=== PATIENT | male | born 1960 | race Caucasian/White ===

== ENCOUNTER 2022-03-17 09:51 | Inpatient (IN) | payer OTHER, SELFPAY ==
[2022-03-17] VITALS (29 sets, daily range): BP systolic 91–132; BP diastolic 53–73; PULSE 50–98; RESP 10–20; TEMP 36.6–37.9; O2SAT 91–100; BMI 21.7
--- NOTE | 2022-03-17 | DI.RAD.S_ITS ---
PROCEDURE: XR HIP W PEL IF DONE RT 2V INDICATIONS: INTRA OP TECHNIQUE: 2 views of the hip were acquired. COMPARISON: [facility], CR, XR HIP W PEL IF DONE RT 2V, 03/17/2022, 10:27. FINDINGS: Bones: Intraoperative images demonstrate dynamic compression screw with sideplate placed for ORIF of intertrochanteric right femur fracture. There is near anatomic alignment of fracture fragments following internal fixation. Soft tissues: No suspicious soft tissue calcifications or masses. IMPRESSION: Expected postsurgical change for ORIF of left femur fracture. Dictated by: Graciela Estrada MD, PhD on 03/18/2022 at 9:21 Approved by: Graciela Estrada MD, PhD on 03/18/2022 at 9:22
--- NOTE | 2022-03-17 10:07 | DI.RAD.S_ITS ---
PROCEDURE: XR HIP W PEL IF DONE RT 2V INDICATIONS: fall down 1 step, hip pain TECHNIQUE: AP pelvis with lateral view(s) of the right hip(s). COMPARISON: None. FINDINGS: Bones: Acute fracture involving intertrochanteric region of right proximal femur with fracture line extending to both greater and lesser trochanters. Superior migration of proximal femoral shaft in relation to femoral head is seen. Moderate bilateral hip joint osteoarthritic changes are seen. No evidence of avascular necrosis of femoral head. Pelvic ring appears intact. No suspicious bony lesions. Soft tissues: The visualized bowel gas pattern is normal. No suspicious soft tissue calcifications. IMPRESSION: Acute displaced right intertrochanteric fracture as above. Dictated by: Avery Collier M.D. on 03/17/2022 at 11:34 Approved by: Avery Collier M.D. on 03/17/2022 at 11:35
--- NOTE | 2022-03-17 11:50 | ED_ITS ---
HPI - Fall General Chief Complaint: Fall Stated Complaint: R hip pain Time Seen by Provider: 03/17/22 09:55 History of Present Illness HPI Narrative: 61-year-old gentleman with a history of developmental and physical delay without specific diagnosis he was otherwise entirely healthy and on no medications. He has some foot contractures that have been lifelong issues and he has worked with physical therapy multiple times of the course of his life 2 days ago, was walking up 1 step stumbled fell on his right hip and was complaining of pain in the right upper thigh. He lives with his brother and [id number] with his [id number] being his primary caregiver. Because his pain was not dramatic they assumed was simply bruised and have been icing the area for 2 days but today when he was unwilling to bear weight at all they brought him into the emergency department for further evaluation. Related Data Allergies Allergy/AdvReac Type Severity Reaction Status Date / Time cat dander Allergy Verified 03/17/22 13:01 Review of Systems Review of Systems Narrative: Pertinent positive and negative findings as per HPI Remainder of review of systems is otherwise unremarkable for Constitutional: Fevers, chills, weakness ENT: No sore throat, neck pain, ear pain CV: Chest pain, palpitations, Respiratory: Cough, wheeze, dyspnea GI: Nausea, vomiting, diarrhea, : Dysuria, hematuria, Patient History Medical History (Updated 03/17/22 @ 13:13 by Hilda Rose MD) Developmental delay, moderate Exam Initial Vital Signs Initial Vital Signs: Vital Signs Pulse Rate 52 L 03/17/22 09:57 Pulse Oximetry 98 03/17/22 09:57 General: Healthy appearing, in no acute distress. Able to give a complete and coherent history. Well-nourished well-developed HEENT: Moist mucous membranes, normal sclera with reactive pupils, Respiratory: Lungs are clear to auscultation, no wheezing no rales no rhonchi. Full and symmetrical air movement Cardiac: Regular rate and rhythm no murmurs no bruits Abdomen: Soft, nontender, good bowel tones, no flank pain Skin: Warm and dry, no rashes Neurologic: Grossly neurologically intact with no obvious asymmetries or abnormalities Extremities: Right leg is held in flexion and slight internal rotation. Both feet and ankles with chronic musculoskeletal changes consistent with neuromuscular disorder Psych: Cooperative, appropriate insight and affect Course Orders Ordered: ED Orders 03/17/22 10:07 XR hip w pel if done RT 2V Stat 03/17/22 11:53 XR chest 1V Stat EKG-12 Lead Stat 03/17/22 13:00 COVID19 -Nasal RAPID/Pre-Proc Stat 03/17/22 13:08 Complete Blood Count AUTO DIFF Stat Comprehensive Metabolic Panel Stat Hydromorphone HCl (Hydromorphone 0.5 Mg Inj) 0.5 mg IV Q15MIN PRN PRN Reason: Pain, Last Admin: 03/17/22 13:02 Dose: 0.5 mg Documented By: AIDAN Sodium Chloride (Normal Saline 0.9%) 1,000 mls @ 150 mls/hr IV CONT LUKE Last Admin: 03/17/22 13:02 Dose: 150 mls/hr Documented By: AIDAN Vital Signs Vital signs: Vital Signs - 8 hr 03/17/22 10:04 03/17/22 09:57 03/17/22 10:00 Temperature 99.1 F Pulse Rate 51 L 52 L 53 L Respiratory Rate 16 Blood Pressure 104/63 Pulse Oximetry 97 98 91 Oxygen Delivery Method Room Air 03/17/22 10:30 03/17/22 11:02 03/17/22 11:30 Temperature Pulse Rate 57 L 57 L 59 L Respiratory Rate Blood Pressure Pulse Oximetry 98 99 Oxygen Delivery Method 03/17/22 12:00 03/17/22 12:30 03/17/22 12:35 Temperature Pulse Rate 57 L 55 L Respiratory Rate Blood Pressure 109/60 Pulse Oximetry 100 98 Oxygen Delivery Method 03/17/22 12:35 03/17/22 12:44 03/17/22 12:44 Temperature Pulse Rate 58 L 56 L Respiratory Rate Blood Pressure 108/67 Pulse Oximetry 98 99 Oxygen Delivery Method MDM - Fall Lab Data Result diagrams: 03/17/22 13:08 03/17/22 13:08 Labs: Lab Results 03/17/22 03/17/22 Range/Units 13:08 13:08 WBC 8.8 (4.5-11.0) X10^3/uL RBC 3.68 L (4.5-5.9) X10^6/uL Hgb 12.2 L (13.5-17.5) g/dL Hct 36.4 L (41-53) % MCV 98.8 (80-100) fL MCH 33.2 (26-34) PG MCHC 33.7 (30-36) % RDW 13.3 (11.6-14.8) % Plt Count 183 (150-400) X10^3/uL Neut % (Auto) 76.3 H (50-75) % Lymph % (Auto) 9.5 L (25-40) % [place] % (Auto) 13.8 (3-14) % Eos % (Auto) 0.2 L (2-4) % Baso % (Auto) 0.2 (0-2) % Neut # (Auto) 6700 (6647-8353) /uL Lymph # (Auto) 800 L (0970-1882) /uL [place] # (Auto) 1200 H (0-900) /uL Eos # (Auto) 0 (0-450) /uL Baso # (Auto) 0 (0-100) /uL Sodium 137 (137-145) mmol/L Potassium 3.8 (3.4-5.1) mmol/L Chloride 102 (98-107) mmol/L Carbon Dioxide 30 (22-32) mmol/L BUN 19 (9-20) mg/dL Creatinine 0.65 L (0.66-1.25) mg/dL Estimated GFR > 60 (>60) mL/min BUN/Creatinine Ratio 29.2 H (6-22) Glucose 91 (80-110) mg/dL Calcium 8.2 L (8.4-10.2) mg/dL Total Bilirubin 0.8 (0.2-1.3) mg/dL AST 28 (17-59) IU/L ALT 15 (<50) IU/L Alkaline Phosphatase 44 (38-126) U/L Total Protein 6.7 (6.3-8.2) g/dL Albumin 3.6 (3.5-5.0) g/dL Globulin 3.1 (1.7-4.1) g/dL Albumin/Globulin Ratio 1.2 (1.0-2.8) Imaging Data Chest x-ray: Radiologist's Impression: FINDINGS:? ? Surgical changes and devices:? None.? ? Lungs and pleura:? Lungs are clear.? No pleural effusions or pneumothorax.? ? Mediastinum:? Mediastinal contours appear normal.? Heart size is normal.? ? Bones and chest wall:? No suspicious bony lesions.? Age-appropriate bony deg enerative changes are seen. ? Overlying soft tissues appear unremarkable.? ? ? IMPRESSION:? Portable chest study within normal limits for age. ? ? Dictated by: Joaquin Trent M.D. on 03/17/2022 at 11:05? ?? XR hip: Radiologist's Impression: NDICATIONS:? fall down 1 step, hip pain ? TECHNIQUE:? AP pelvis with lateral view(s) of the right hip(s).? ? COMPARISON:? None. ? FINDINGS:? ? Bones:? Acute fracture involving intertrochanteric region of right proximal femur with fracture line extending to both greater and lesser trochanters.? Superior migration of proximal femoral shaft in relation to femoral head is seen.? Moderate bilateral hip joint osteoarthritic changes are seen.? No evidence of avascular necrosis of femoral head.? Pelvic ring appears intact.? No suspicious bony lesions.? ? Soft tissues:? The visualized bowel gas pattern is normal.? No suspicious soft tissue calcifications.? ? ? IMPRESSION:? Acute displaced right intertrochanteric fracture as above. ? ? ? Dictated by: Avery Collier M.D. on 03/17/2022 at 11:34? ?? MDM Narrative Medical decision making narrative: 61-year-old physically healthy gentleman with mild developmental delay and but appears to be mild neuromuscular abnormalities neither of which have been formally diagnosed. Stumbled going up a stair 2 days ago falling onto his right hip and suffering a displaced right intratrochanteric fracture. Care is reviewed with Dr. Stock. Anticipate surgical intervention this evening. He will admit the patient. Discharge Plan Departure Patient Disposition: Admitted As Inpatient Clinical Impression: Closed hip fracture Qualifiers: Encounter type: initial encounter Laterality: right Qualified Code(s): S72.001A - Fracture of unspecified part of neck of right femur, initial encounter for closed fracture Admit Date/Time: 03/17/22 13:33 Admit Provider: Michael Stock
--- NOTE | 2022-03-17 11:53 | DI.RAD.S_ITS ---
PROCEDURE: XR CHEST 1V INDICATIONS: Trauma, preoperative TECHNIQUE: One view of the chest was acquired. COMPARISON: None. FINDINGS: Surgical changes and devices: None. Lungs and pleura: Lungs are clear. No pleural effusions or pneumothorax. Mediastinum: Mediastinal contours appear normal. Heart size is normal. Bones and chest wall: No suspicious bony lesions. Age-appropriate bony degenerative changes are seen. Overlying soft tissues appear unremarkable. IMPRESSION: Portable chest study within normal limits for age. Dictated by: Joaquin Trent M.D. on 03/17/2022 at 11:05 Approved by: Joaquin Trent M.D. on 03/17/2022 at 11:06
[2022-03-17] MEDS: SODIUM CHLORIDE 0.9% 1,000 ML 150 ML IV (13:02)
[2022-03-17] MEDS: HYDROMORPHONE 0.5 MG INJ IV (13:02)
[2022-03-17 13:30] LABS: Add Manual Diff / Slide Review NO; Basophils Absolute Auto 0 /uL (0-100); Basophils Percent Auto 0.2 % (0-2); Eosinophils Absolute Auto 0 /uL (0-450); Eosinophils Percent Auto 0.2 % (2-4); Hematocrit 36.4 % (41-53); Hemoglobin 12.2 g/dL (13.5-17.5); Lymphocytes Absolute Auto 800 /uL (1100-4500); Lymphocytes Percent Auto 9.5 % (25-40); Mean Corpuscular HGB Conc 33.7 % (30-36); Mean Corpuscular Hemoglobin 33.2 PG (26-34); Mean Corpuscular Volume 98.8 fL (80-100); Monocytes Absolute Auto 1200 /uL (0-900); Monocytes Percent Auto 13.8 % (3-14); Neutrophils Absolute Auto 6700 /uL (1500-7000); Neutrophils Percent Auto 76.3 % (50-75); Platelet Count 183 X10^3/uL (150-400); Red Blood Cell Count 3.68 X10^6/uL (4.5-5.9); Red Cell Distribution Width 13.3 % (11.6-14.8); White Blood Cell Count 8.8 X10^3/uL (4.5-11.0)
[2022-03-17 13:43] LABS: Alanine Aminotransferase 15 IU/L (<50); Albumin 3.6 g/dL (3.5-5.0); Albumin Globulin Ratio 1.2 (1.0-2.8); Alkaline Phosphatase 44 U/L (38-126); Aspartate Aminotransferase 28 IU/L (17-59); BUN Creatinine Ratio 29.2 (6-22); Bilirubin Total 0.8 mg/dL (0.2-1.3); Blood Urea Nitrogen 19 mg/dL (9-20); Calcium 8.2 mg/dL (8.4-10.2); Carbon Dioxide 30 mmol/L (22-32); Chloride 102 mmol/L (98-107); Estimated Glomerular Filt Rate > 60 mL/min (>60); Globulin 3.1 g/dL (1.7-4.1); Glucose 91 mg/dL (80-110); HEMOLYSIS 34 (0-50); Potassium 3.8 mmol/L (3.4-5.1); Sodium 137 mmol/L (137-145); Total Protein 6.7 g/dL (6.3-8.2)
[2022-03-17 14:14] LABS: COVID19 -Nasal RAPID Negative (Negative)
--- NOTE | 2022-03-17 17:05 | PM.HP.1 ---
History of Present Illness History of Present Illness Date Patient Seen: 03/17/22 Time Patient Seen: 17:05 Date of Onset of Symptoms: 03/15/22 Chief complaint: R hip pain Narrative: The patient is a 61-year-old gentleman with mild developmental delay who suffered a fall 2 days ago and developed significant right hip pain. This did not resolve so he came to the emergency room for evaluation on the morning of March 17, 2022. An x-ray revealed a displaced intertrochanteric right hip fracture. Orthopedic consultation has been obtained for definitive management of this fracture. Patient History Medical History (Updated 03/17/22 @ 13:13 by Hilda Rose MD) Developmental delay, moderate Family & Social History Safety & Behavioral: Feels Safe in Current Yes Environment Been Physically Hurt or No Threatened By a Person Meds Home Medications and Allergies Allergies Allergy/AdvReac Type Severity Reaction Status Date / Time cat dander Allergy Verified 03/17/22 13:01 Review of Systems Review of Systems Narrative: He reports he does not have normal function with his feet. He has mildly altered sensation and cannot move his toes or ankles. This is chronic. Exam Vital Signs (past 8 hours): - 03/17/22 10:04 03/17/22 09:57 03/17/22 10:00 Temperature 99.1 F Pulse Rate 51 L 52 L 53 L Respiratory Rate 16 Blood Pressure 104/63 Pulse Oximetry 97 98 91 Oxygen Delivery Method Room Air 03/17/22 10:30 03/17/22 11:02 03/17/22 11:30 Temperature Pulse Rate 57 L 57 L 59 L Respiratory Rate Blood Pressure Pulse Oximetry 98 99 Oxygen Delivery Method 03/17/22 12:00 03/17/22 12:30 03/17/22 12:35 Temperature Pulse Rate 57 L 55 L Respiratory Rate Blood Pressure 109/60 Pulse Oximetry 100 98 Oxygen Delivery Method 03/17/22 12:35 03/17/22 12:44 03/17/22 12:44 Temperature Pulse Rate 58 L 56 L Respiratory Rate Blood Pressure 108/67 Pulse Oximetry 98 99 Oxygen Delivery Method 03/17/22 13:00 03/17/22 13:00 03/17/22 13:30 Temperature Pulse Rate 53 L Respiratory Rate Blood Pressure 115/64 99/56 L Pulse Oximetry 100 Oxygen Delivery Method 03/17/22 13:30 03/17/22 14:00 03/17/22 14:00 Temperature Pulse Rate 58 L 55 L Respiratory Rate 20 Blood Pressure 96/58 L Pulse Oximetry 97 98 Oxygen Delivery Method 03/17/22 14:30 03/17/22 14:30 03/17/22 15:00 Temperature Pulse Rate 55 L Respiratory Rate Blood Pressure 103/56 L 100/55 L Pulse Oximetry 98 Oxygen Delivery Method 03/17/22 15:00 03/17/22 15:30 03/17/22 15:30 Temperature Pulse Rate 55 L 53 L Respiratory Rate 12 Blood Pressure 92/55 L 102/55 L Pulse Oximetry 95 95 Oxygen Delivery Method 03/17/22 15:59 03/17/22 16:00 03/17/22 16:00 Temperature Pulse Rate 54 L 52 L Respiratory Rate Blood Pressure 91/53 L Pulse Oximetry 95 95 Oxygen Delivery Method Oxygen Delivery Method Room Air Narrative Exam Narrative: The patient is seen resting comfortably in his emergency room [facility]. The skin over the proposed surgical site is clean with no signs of abrasions or infection. His right leg is shortened and externally rotated. He is light touch is objectively intact in his right leg. He cannot dorsiflex and plantar flex his toes or ankle. He has 2+ posterior tibial pulse. HEENT examination is normocephalic atraumatic. Chest is clear to auscultation. Cardiac exam is regular rate rhythm no rubs murmurs or gallops. Abdomen is soft nontender with normal bowel with bowel sounds no palpable masses. Objective Labs Result Diagrams: 03/17/22 13:08 03/17/22 13:08 Labs: Laboratory Results - last 24 hr 03/17/22 03/17/22 03/17/22 13:00 13:08 13:08 WBC 8.8 RBC 3.68 L Hgb 12.2 L Hct 36.4 L MCV 98.8 MCH 33.2 MCHC 33.7 RDW 13.3 Plt Count 183 Neut % (Auto) 76.3 H Lymph % (Auto) 9.5 L [place] % (Auto) 13.8 Eos % (Auto) 0.2 L Baso % (Auto) 0.2 Neut # (Auto) 6700 Lymph # (Auto) 800 L [place] # (Auto) 1200 H Eos # (Auto) 0 Baso # (Auto) 0 Sodium 137 Potassium 3.8 Chloride 102 Carbon Dioxide 30 BUN 19 Creatinine 0.65 L Estimated GFR > 60 BUN/Creatinine Ratio 29.2 H Glucose 91 Calcium 8.2 L Total Bilirubin 0.8 AST 28 ALT 15 Alkaline Phosphatase 44 Total Protein 6.7 Albumin 3.6 Globulin 3.1 Albumin/Globulin Ratio 1.2 SARS-CoV-2 (PCR) Negative radiographs are obtained March 17, 2022 under reviewed and independently interpreted. These reveal a displaced intertrochanteric hip fracture of the right femur. Assessment & Plan Assessment & Plan narrative: The patient is a mildly developmentally delayed gentleman with abnormal function in his feet. He stumbled 2 days ago sustaining the above-noted fracture. He has agreed to open reduction internal fixation with a dynamic hip screw after discussion the risks benefits and alternatives. Risks discussed included but were not limited to: Failure to improve, failure of the hardware or cutting out, stiffness, infection, nerve damage, deep venous thrombosis, pulmonary embolism, hemorrhage requiring transfusion, stroke, myocardial infarction, permanent paralysis and . COVID-19 COVID-19 status: Negative Result date/Date tested (Pos, Neg/Pending): 03/17/22 Time Spent With Patient Critical Care time: I spent a total of [] minutes of critical care time on this patient's care today; this time is exclusive of procedural time.
[2022-03-17] MEDS: LACTATED RINGERS 1,000 ML 42 ML IV ×2 (17:22→19:39)
[2022-03-17] MEDS: CEFAZOLIN 2 GM/20 ML SYRINGE IV (17:45)
[2022-03-17 18:09] LABS: Bacteria Urine Occasional (0-1); Culture Indicated Urine Cult Not Indicated; Mucus Urine 2+ (Negative); RBC Urine 1-5/HPF (0-5/HPF); Squamous Epithelial Cell Urine 0-1 /HPF (0-5/HPF); Transitional Epi Cells Urine 0-1/HPF (0-5/HPF); WBC Urine 1-5/HPF (0-5/HPF)
--- NOTE | 2022-03-17 18:15 | SUR.OPER ---
Supine on padded [place] table with right leg secured in padded positioning boot and suspended in positioning spars as directed per surgeon, operative leg in traction per surgeon. Left leg in well leg saenz, padded with gel and taped for securing to saenz. Head on one pillow. Arm on non-operative side secured on padded armboard <90 degrees abduction. Arm on operative side padded and resting across chest then secured with tape over sheet. Padded perineal post in place per surgeon. All positioning directed and approved by surgeon.
[2022-03-17] MEDS: TRANEXAMIC ACID 1,000 MG VIAL 2000 MG INJ (18:24)
[2022-03-17] MEDS: BUPIVACAINE 0.5% (PF) 30 ML, EPINEPHrine 0.15 MG INJ (18:24)
--- NOTE | 2022-03-17 19:20 | P.OP_ITS ---
Operative Date/Time/Diagnoses Date of procedure: 03/17/22 Pre-op diagnosis: Right hip intertrochanteric fracture, displaced, closed Post-op diagnosis: same Procedure & Clinicians Procedure: Open reduction internal fixation of right hip fracture with dynamic hip screw construct Same procedure as scheduled: Yes Indications: The patient is a 61-year-old mildly developmentally delayed gentleman who suffered a fall 2 days ago and was unable to walk. He eventually was taken [facility] emergency room by his family for evaluation and radiographs revealed a displaced intertrochanteric hip fracture. He has been admitted for open reduction internal fixation and has agreed to this after discussion the risks benefits and alternatives as documented in my history and physical note. Surgeon: Michael Stock Click Yes if Unassisted: Yes Anesthesia Type: General and Local Operative Notes Findings: Anatomic reduction. Closure Type: primary Specimen(s): none sent Prosthetic devices, grafts, tissues, transplants, or devices: Implants used in this procedure manufactured by the [employer] and included a dynamic hip screw with a 105 mm lag screw and a 135 degree long barrel 4 hole side plate and 4 cortical screws. Applied: implant(s) Estimated Blood Loss (mL): 150 Blood products transfused: none Procedure in detail: The patient was seen in the preoperative area where he identified the right hip as the operative site. This was later confirmed in the operating room using fluoroscopic visualization. He was taken to the operating room on his emergency room [facility] where he underwent a general anesthetic. He was then transferred to the fracture table. The right leg was placed and traction leg saenz the left leg was placed in the well leg saenz in flexed abducted and internally rotated to remove it from the path of fluoroscopy. Traction was placed on the operative leg to reduce the fracture. The fracture reduction was confirmed in the AP and lateral views of fluoroscopy. He received 2 g of Ancef as perioperative antibiotic coverage and a real time operator-out was performed. The lateral aspect of the leg was prepared with ChloraPrep in the usual fashion and draped with an adherent vertical plastic drape. An approximately 8 cm incision was created over the proximal femur in line with the femoral shaft. This was carried down to the fascia ubaldo which was incised. The fascia of the vastus lateralis was incised and the muscle split bluntly to the lateral aspect of the femur. A guide pin was placed in the central aspect of the femoral head on the AP and lateral views. This was measured, 5 mm subtracted and the triple Reamer used to create the path for the lag screw. The lag screw was then placed and advanced to within 5 mm of the dome of the femoral head on both the AP and lateral views. The 135 degree 4 hole long barrel side plate was then advanced over the barrel of the lag screw. It was advanced with a tamp to the lateral aspect of the femur. The cortical screws were then placed to fixate the plate along the femoral shaft. The fracture construct with the hardware was viewed in the AP and lateral planes with fluoroscopy and found to be satisfactorily reduced with no signs of complications. Traction on the leg was then released. Wound was then irrigated with sterile saline. The fascia of the vastus lateralis was closed with a running 2 0 Vicryl, the fascia ubaldo was closed with interrupted and running 0 Vicryl. The subcutaneous layer was closed with 3-0 Vicryl. The subcutaneous tissues were injected with a total of 10 mL 0.5% Marcaine with ep inephrine for postoperative pain control. The skin was then closed with oli. An Aquacel Ag dressing was applied. The patient was taken out of the fracture table set up and transferred to his hospital bed after being extubated on the fracture table. He was transferred to the recovery room in good condition having tolerated the procedure well. Complications: none Post-operative Condition: stable Disposition: PACU Plan for aftercare: The patient will be allowed to weight bear as tolerated. He does have neurologic issues likely cerebral palsy with his lower extremities and may require additional therapy and potentially transfer to long term facility for rehabilitation prior to transfer home.
[2022-03-17] MEDS: MEPERIDINE 50 MG/ML INJ 12.5 MG IV (19:39)
[2022-03-17] MEDS: hydrOXYzine pamoate 25 MG CAPSULE PO (19:41)
[2022-03-17] MEDS: HYDROMORPHONE 2 MG INJ IV (19:42)
--- NOTE | 2022-03-17 19:54 | SUR.PHASEI ---
Pt slow to wake, shakes resolved with demerol, pt c/o pain medicated with dilaudid and vistaril.
[2022-03-17] MEDS: ACETAMINOPHEN 325 MG TABLET 650 MG PO (20:04)
--- NOTE | 2022-03-17 20:36 | SUR.PHASEI ---
Pt delayed, RN not available. Pt given tylenol a long with other meds mentioned pain finally down, pt stated 0/10. Pt transported up to room, left in stable condition with JOCELIN Sanchez. bed low,locked scd's on. Call light in reach, pt aware on it's use.
[2022-03-17] MEDS: LACTATED RINGERS 1,000 ML 125 ML IV (20:43)
[2022-03-18 04:20] VITALS: BP 102/67; PULSE 68; RESP 16; O2SAT 97
[2022-03-18] MEDS: OXYCODONE IR 10 MG TABLET PO ×3 (04:33→18:31)
[2022-03-18] MEDS: hydrOXYzine pamoate 25 MG CAPSULE 50 MG PO (05:46)
[2022-03-18 06:36] LABS: Hematocrit 32.9 % (41-53); Hemoglobin 11.3 g/dL (13.5-17.5); Mean Corpuscular HGB Conc 34.5 % (30-36); Mean Corpuscular Hemoglobin 33.7 PG (26-34); Mean Corpuscular Volume 97.7 fL (80-100); Platelet Count 183 X10^3/uL (150-400); Red Blood Cell Count 3.37 X10^6/uL (4.5-5.9); Red Cell Distribution Width 12.9 % (11.6-14.8); White Blood Cell Count 6.3 X10^3/uL (4.5-11.0)
[2022-03-18 07:23] VITALS: O2SAT 98
[2022-03-18 07:40] VITALS: BP 90/55; PULSE 55; RESP 16; TEMP 36.1; O2SAT 98
--- NOTE | 2022-03-18 07:55 | PM.PNPO.1 ---
Subjective Subjective Date Patient Seen: 03/18/22 Time Patient Seen: 07:56 Interval history: Sitting up in bed, quite cheery. Comfortable, but hesitant with movement because of fear of pain. Eating well, no problems with voiding but complains because 'people keep saying I have Peyronie's.' Has not been OOB yet. Exam Vital Signs (past 8 hours): - 03/18/22 04:20 03/18/22 07:23 Pulse Rate 68 Respiratory Rate 16 Blood Pressure 102/67 Pulse Oximetry 97 98 Oxygen Delivery Method Room Air Oxygen Flow Rate 0 Oxygen Delivery Method Room Air Oxygen Flow Rate 0 Narrative Exam Narrative: 5/5 strength in hip flexors, quadriceps, hamstrings, DF, PF, EHL bilaterally. Sensation to light touch intact throughout BLE. Calves soft, compressible, nontender and without palpable cords or masses. Aquacel dressing CDI. Objective Labs Result Diagrams: 03/18/22 05:36 03/17/22 13:08 Labs: Laboratory Results - last 24 hr 03/17/22 03/17/22 03/17/22 13:00 13:08 13:08 WBC 8.8 RBC 3.68 L Hgb 12.2 L Hct 36.4 L MCV 98.8 MCH 33.2 MCHC 33.7 RDW 13.3 Plt Count 183 Neut % (Auto) 76.3 H Lymph % (Auto) 9.5 L [place] % (Auto) 13.8 Eos % (Auto) 0.2 L Baso % (Auto) 0.2 Neut # (Auto) 6700 Lymph # (Auto) 800 L [place] # (Auto) 1200 H Eos # (Auto) 0 Baso # (Auto) 0 Sodium 137 Potassium 3.8 Chloride 102 Carbon Dioxide 30 BUN 19 Creatinine 0.65 L Estimated GFR > 60 BUN/Creatinine Ratio 29.2 H Glucose 91 Calcium 8.2 L Total Bilirubin 0.8 AST 28 ALT 15 Alkaline Phosphatase 44 Total Protein 6.7 Albumin 3.6 Globulin 3.1 Albumin/Globulin Ratio 1.2 Urine RBC Urine WBC Ur Squamous Epith Cells Ur Transition Epith Cell Urine Bacteria Urine Mucus Ur Culture Indicated? SARS-CoV-2 (PCR) Negative 03/17/22 03/18/22 16:54 05:36 WBC 6.3 RBC 3.37 L Hgb 11.3 L Hct 32.9 L MCV 97.7 MCH 33.7 MCHC 34.5 RDW 12.9 Plt Count 183 Neut % (Auto) Lymph % (Auto) [place] % (Auto) Eos % (Auto) Baso % (Auto) Neut # (Auto) Lymph # (Auto) [place] # (Auto) Eos # (Auto) Baso # (Auto) Sodium Potassium Chloride Carbon Dioxide BUN Creatinine Estimated GFR BUN/Creatinine Ratio Glucose Calcium Total Bilirubin AST ALT Alkaline Phosphatase Total Protein Albumin Globulin Albumin/Globulin Ratio Urine RBC 1-5/hpf Urine WBC 1-5/hpf Ur Squamous Epith Cells 0-1 /hpf Ur Transition Epith Cell 0-1/hpf Urine Bacteria Occasional (0-1) Urine Mucus 2+ H Ur Culture Indicated? Cult not indicated SARS-CoV-2 (PCR) [facility] Medical History (Updated 03/18/22 @ 07:59 by Karis Doherty PA-C) Developmental delay, moderate Social History household members: family Smoking Status: Never smoker alcohol intake: current Assessment & Plan Post-op Assessment and plan (1) Status post hip surgery: Assessment and Plan narrative: PT today. Continue enoxaparin x 10 days for VTE prophylaxis. May require SNF for rehab d/t developmental delay. (2) Acute postoperative anemia due to expected blood loss: Assessment and Plan narrative: Asymptomatic, no intervention needed at this time. Postoperative Procedures: Procedures Operation Date: 03/17/22 16:45 Actual Procedure Side Surgeon p ORIF Hip DHS Right Michael Stock MD Postoperative day: 1 Quality VTE Deep Vein Thrombosis/Pulmonary Embolism Present on Admission: No
--- NOTE | 2022-03-18 07:57 | PC.NURSE ---
Admit/NOC Shift Note- Patient arrived to room via bed from PACU at 2030. Patient developmentally delayed, patient able to make needs known to staff. Admit questions done, no home medications, physical assessment done, and skin check completed. Oriented patient to bed and bed controls, room, lights, phone, menu, and callbell./tv remote. Safety measures in place. bed alarm activated. Call espinoza and phone within reach. will continue to monitor.
[2022-03-18] MEDS: ENOXAPARIN 40 MG/0.4 ML SYRINGE SUBCUT (08:45)
[2022-03-18] MEDS: polyethylene glycoL 3350 17 GM POWD.PACK PO (08:45)
--- NOTE | 2022-03-18 09:30 | PT.IIE ---
Current Diagnoses Acute posthemorrhagic anemia (03/17/22) Other specified postprocedural states (03/17/22) Surgery Performed Operation Date: 03/17/22 16:45 Actual Procedures p ORIF Hip DHS(Right) - Michael Stock MD Medical History (Last Updated 03/18/22 @ 07:59 by Karis Doherty PA-C) Developmental delay, moderate Physical Therapy Inpatient Evaluation/Re-Eval M1 PT/OT-IP Prior Functional Status Start: 03/18/22 12:21 Freq: NEEDED Status: Active Protocol: Document 03/18/22 09:30 AB (Rec: 03/18/22 12:39 AB [email or web address]) Medical Review Prior Functional Status Medical History Reviewed Yes Communication able to make needs known Mobility and Gait pt stated that he is modified independent with all mobilities and ambulation without AD Social History Household Members family Living Arrangements House Number of Floors (Floors) Two Floors Number of Stairs To Enter/Railing? 2 steps to enter without rails ; pt stays on the main level of the house Home Environment High Toilet,Tub/Shower Home Equipment Grab Bars Near Toilet Additional Social History Comment stated that he lives with his brother and sister and his brother works and cannot assist him and he is not sure if his sister can assist him M2 PT-IP Current Condition Start: 03/18/22 12:21 Freq: NEEDED Status: Active Protocol: Document 03/18/22 09:30 AB (Rec: 03/18/22 12:39 AB [email or web address]) Physical Therapy Current Condition Current Condition Evaluation Date 03/18/22 Treatment Diagnosis s/p fall; R hip fx s/p ORIF; difficulty in walkiing Onset Date 03/17/22 M3 PT-IP Subjective Start: 03/18/22 12:21 Freq: NEEDED Status: Active Protocol: Document 03/18/22 09:30 AB (Rec: 03/18/22 12:39 AB [email or web address]) Subjective Physical Therapy Visit Type Type Initial Evaluation Visit Start Time 09:30 Visit Stop Time 10:11 Total Visit Minutes 41 Number of DIRECTOR MACHINE Visits 0 Physical Therapy Visit Comments Patient Comments agreeable to do PT Therapy Pain Assessment Pain When Pain Assessed At Rest Pain Present Pain Present Pain Reported Location r hip Intensity 10 Scale Used Numeric (0 - 10) Pain Management Techniques Apply Cold,Distraction, Modification of Treatment,Re- positioning,Timing of Activity with Medications M4 PT-IP Mobility and Gait Start: 03/18/22 12:21 Freq: NEEDED Status: Active Protocol: Document 03/18/22 09:30 AB (Rec: 03/18/22 12:39 AB [id number]) PT-Bed Mobility Assessment Supine to Sit Supine to Sit Maximum Assistance,1 Person Assistance,2 Person Assistance ,Bedrails PT-Transfer Assessment Sit to and From Stand Sit to and from Stand Maximum Assistance,2 Person Assistance,Use of Upper Extremities Equipment Transfer Assistive Device Gait Belt,Front Wheeled Walker Orthotic/Prosthetic Devices or Brace: No Transfers Transfer Destination Chair Transfer Technique Stand Step Pivot Transfer Ability Level of Assist Maximum Assistance,2 Person Assistance,Use of Upper Extremities Comments Mobility Comments PROM on RLE conducted in supine. pt with increase knee flexor thightness and unable to fully straighten R knee and with increase guarding. completed supine to sit max A x 1 -2 and max cues.. able to sit on EOB mod to max A and max cues. pt is [place] and has difficulty following directions and requires repetitions. pt requested to use the urinal, attempted in sitting but unable. completed sit to stand max A x2 and max cues. pt with difficulty weight bearing on RLE with increase knee flexion. max A for standing balance using FWW and NAC assist pt with urinal . tolerated ~ 7 min of standing using FWW for support max A and max cues. completed step transfer to chair using FWW max A x 2 and max cues. positioned pt on the chair. call light and table placed within reach. Gait Assessment Gait Gait Assistance Required: Maximum Assistance,2 Person Assist Distance (Feet) 2 Able to Maintain Weight Bearing Status Yes During Gait Assistive Devices Assistive Device Gait Belt,Front Wheeled Walker Orthotic/Prosthetic Devices or Brace: No Comments Gait Comments steps during transfers only using FWW PT-Balance Assessment Sitting Balance and Reactions Static Sitting Balance Ability Fair Dynamic Sitting Balance Ability Poor Standing Balance and Reactions Static Standing Balance Ability Poor Dynamic Standing Balance Ability Poor Device Used FWW M5 PT-IP Objective Assessments Start: 03/18/22 12:21 Freq: NEEDED Status: Active Protocol: Document 03/18/22 09:30 AB (Rec: 03/18/22 12:39 AB [email or web address]) Orientation Orientation/Cognition Level of Alertness Alert Orientation Name,Place,Situation Language Function Ability Hard of Hearing Safety Awareness Decreased Safety Awareness Memory Description Short Term Impaired Gross Range of Motion Lower Extremity ROM Assessment Right Impaired Impairments R knee increase guarding. unable to fully straighten. ~ 30 deg less to full ext Strength Lower Extremity Strength Assessment Right Impaired Hip 3-/5 Knee 3-/5 Sensation Assessment Sensation Gross Sensation WNL Muscle Tone Muscle Tone WNL Yes M6 PT-IP Treatment Start: 03/18/22 12:21 Freq: NEEDED Status: Active Protocol: Document 03/18/22 09:30 AB (Rec: 03/18/22 12:39 AB [id number]) Physical Therapy Treatment Education Education Provided Precautions,Weight Bearing Status,Post-Op Packet,Safety M7 PT-IP Assessment and Plan Start: 03/18/22 12:21 Freq: NEEDED Status: Active Protocol: Document 03/18/22 09:30 AB (Rec: 03/18/22 12:39 AB [email or web address]) PT Summary Assessment and Plan Potential Rehabilitation Potential Fair Status of Condition at Evaluation Evolving Summary Impairments Pain,ROM,Strength,Balance, Coordination,Sensation,Tone, Cognition,Bed Mobility, Transfers,Gait,Activity Tolerance Assessment Summary pt requiring max A x 2 and max cues with mobility and unable to ambulate at this time. per EMR, pt has h/o CP. pt with difficulty following directions and needs repetions . pt will require SNF rehab at this time. will continue to assess progress. Goals Bed Mobility Goal Standby Assistance Transfer Goal Standby Assistance,Front Wheeled Walker Gait Goal Standby Assistance,Front Wheel Walker Gait Distance 50 Other Goals up/down 2 steps without rails mod A Days to Meet Goals 10 Frequency of Treatment Frequency Of Treatment Twice a Day Treatment Plan Physical Therapy Treatment Plan Bed Mobility Training,Transfer Training,Gait Training, Therapeutic Exercise,Balance Retraining,Post Op Education, Discharge Planning,Hot or Cold Pack,Neuromuscular Re-ed, Coordination Retraining,Manual Therapy Weight Bearing Status Weight Bearing Status Weight Bear as Tolerated Allowed Weight Bearing Amount (enter % RLE WBAT or #) (%) Recommendations To Nursing Amount of Assist Needed 2 Person Assist Discharge Recommendations PT Discharge Recommendations SNF Rehab Transportation Needs at Discharge Wheelchair/Cabulance
--- NOTE | 2022-03-18 13:02 | CM.DANOTE ---
Addendum entered by Jenise Alamo R.N. 03/18/22 15:36: Spoke with pt sister in law, Kristin, to inquire about Covid vaccination status as [facility] wanted to know more information. Kristin states that she and her family would really like for her to go to the inpatient acute rehab in [place] at [facility], (now the Inpatient Acute Rehab at [place]). DCP spoke with her about the chances of pt getting admitted into the facility. [facility]. DCP spoke with Aury at Rehab and she is going to look at pt referral and get back to DCP about potential acceptance. FABY, RN/JOIP Addendum entered by Jenise Alamo R.N. 03/18/22 14:24: Referral sent to [facility]. Jenise Alamo RN/KELVIN Original Note: DCP Note: Payor: [employer] PCP: Unknown Pt is a 61 y.o. developmentally disabled male, who came to the ER after suffering a fall a few days ago and had developed R hip pain. X ray was done and it was noted that he had a right hip fracture. Ortho was consulted. Surgery was planned and pt agreed. DCP met with pt at the bedside. Pt was sitting up it the chair eating lunch and watching TV. DCP explained role to patient and pt was thankful for the drop in. DCP stated that she has sent a referral to [facility] to see if they would accept him for some more rehab. Pt agreed with plan. White board was updated. DCP stated that she would drop in again the morning to check on him and give status update. DCP attempted to contact Kristin, pt sister in law and emergency contact, and left message to call back so that DCP could update her on the plan. P: Once medically stable per MD, pt to discharge to SNF (pending placement) via cabulance. Jenise Alamo RN/KELVIN Discharge Planning/Care Management CM Discharge Assessment Start: 03/18/22 12:53 Freq: Status: Active Protocol: Document 03/18/22 13:00 HUI (Rec: 03/18/22 13:01 HUI [id number]) Discharge Planning Assessment Assigned Bariatric Nurse Jenise Alamo RN/DCP Advance Directives? No History Provided By Patient,Medical Record Has Patient been admitted in last 30 No days? Prior Living Arrangements House Household Members family Comment With Brother and Sister in Law Type of transporation used prior to Relies on Others admit Independent with ADL's Yes Is patient alert and oriented? Yes: x2 Caregiver for Another No Barriers to Discharge No Discharge Plan Nursing Home Facility Referrals Initiated Nursing Home Whiteboard Updated in Patient Room with Yes name and ext. # of Bariatric Nurse Review Status In Process Please Provide Date Initial DC 03/18/22 Assessment Was Performed Next Review Type Continued Stay Review
--- NOTE | 2022-03-18 13:21 | CM.DPNOTE ---
Emailed referral to [facility] per Jenise. Jojo Dawson CM Assist.
[2022-03-18 13:54] VITALS: BP 99/58; PULSE 55; RESP 16; TEMP 36.2; O2SAT 100
--- NOTE | 2022-03-18 14:32 | PT.IPTN ---
Current Diagnoses Acute posthemorrhagic anemia (03/17/22) Other specified postprocedural states (03/17/22) Surgery Performed Operation Date: 03/17/22 16:45 Actual Procedures p ORIF Hip DHS(Right) - Michael Stock MD Physical Therapy Treatment Note M2 PT-IP Current Condition Start: 03/18/22 12:21 Freq: NEEDED Status: Active Protocol: Document 03/18/22 09:30 AB (Rec: 03/18/22 12:39 AB [id number]) Physical Therapy Current Condition Current Condition Evaluation Date 03/18/22 Treatment Diagnosis s/p fall; R hip fx s/p ORIF; difficulty in walkiing Onset Date 03/17/22 M3 PT-IP Subjective Start: 03/18/22 12:21 Freq: NEEDED Status: Active Protocol: Document 03/18/22 14:11 KS (Rec: 03/18/22 14:58 KS [id number]) Subjective Physical Therapy Visit Type Type Treatment Note Visit Start Time 14:11 Visit Stop Time 14:32 Total Visit Minutes 21 Number of PARIMUTUEL TICKET CHECKER Visits 1 Physical Therapy Visit Comments Patient Comments agreeable to do PT, but hesitant due to pain. Therapy Pain Assessment Pain When Pain Assessed At Rest Pain Present Pain Present Pain Reported M4 PT-IP Mobility and Gait Start: 03/18/22 12:21 Freq: NEEDED Status: Active Protocol: Document 03/18/22 14:11 KS (Rec: 03/18/22 14:58 KS [id number]) PT-Bed Mobility Assessment Scooting Scooting to Edge of Bed Standby Assistance PT-Transfer Assessment Sit to and From Stand Sit to and from Stand Maximum Assistance,1 Person Assistance,Use of Upper Extremities Equipment Transfer Assistive Device Gait Belt,Front Wheeled Walker Orthotic/Prosthetic Devices or Brace: No Transfers Transfer Destination Chair Transfer Technique sit<>stand Transfer Ability Level of Assist Maximum Assistance,2 Person Assistance,Use of Upper Extremities Comments Mobility Comments Pt in chair upon arrival and hesitant to participate due to pain and fear of falling. Pts BP: 101/62. Able to scoot himself to edge of chair SBA. Pt sit<>stand w/ FWW w/ good strength in BUE to push up from arm rests, but ultimately still required Max A to transition arms from arm rests to FWW and stand fully. Pt relied heavily on BUE during standing and avoided putting weight on RLE due to pain. Pt unable to extend knee and put heel on floor on RLE and pt states prior to fall, he walked on his toes on R side and did not put heel on floor. Able to put some weight through toes of R leg but still w/ heavy guarding and heavy reliance of BUE to off weight. BP 102/56 after sitting. Pt performed additional sit<>stand and attempted marching in place w/ similar results. Able to use BUE for slow descent into chair and scooting back in chair. Pt reports slight dizziness, BP 102/67. Pt left in chair w/ all needs in reach. Gait Assessment Comments Gait Comments Did not assess- attempted marching in place. Pt w/ increased difficulty, guarding , and unable to fully weight bear on RLE. PT-Balance Assessment Sitting Balance and Reactions Static Sitting Balance Ability Fair Dynamic Sitting Balance Ability Poor Standing Balance and Reactions Static Standing Balance Ability Poor Dynamic Standing Balance Ability Poor Device Used FWW M5 PT-IP Objective Assessments Start: 03/18/22 12:21 Freq: NEEDED Status: Active Protocol: Document 03/18/22 09:30 AB (Rec: 03/18/22 12:39 AB [id number]) Orientation Orientation/Cognition Level of Alertness Alert Orientation Name,Place,Situation Language Function Ability Hard of Hearing Safety Awareness Decreased Safety Awareness Memory Description Short Term Impaired Gross Range of Motion Lower Extremity ROM Assessment Right Impaired Impairments R knee increase guarding. unable to fully straighten. ~ 30 deg less to full ext Strength Lower Extremity Strength Assessment Right Impaired Hip 3-/5 Knee 3-/5 Sensation Assessment Sensation Gross Sensation WNL Muscle Tone Muscle Tone WNL Yes M6 PT-IP Treatment Start: 03/18/22 12:21 Freq: NEEDED Status: Active Protocol: Document 03/18/22 14:11 KS (Rec: 03/18/22 14:58 KS [id number]) Physical Therapy Treatment Education Education Provided Precautions,Weight Bearing Status,Post-Op Packet,Safety M7 PT-IP Assessment and Plan Start: 03/18/22 12:21 Freq: NEEDED Status: Active Protocol: Document 03/18/22 14:11 KS (Rec: 03/18/22 14:58 KS [id number]) PT Summary Assessment and Plan Potential Rehabilitation Potential Fair Status of Condition at Evaluation Evolving Summary Impairments Pain,ROM,Strength,Balance, Coordination,Sensation,Tone, Cognition,Bed Mobility, Transfers,Gait,Activity Tolerance Assessment Summary Pt MAx A for sit<>Stand and able to perform twice. Attempted marching in place however pt unable to touch heel to floor on R foot, which he states was the same prior to fall but he is also guarding and keeping knee flexed and relying on BUE to off weight RLE. Able to put some weight through R toes w/ cues but grimaced w/ pain and requested to sit. Pt has some difficulty following directions, needing increased cues, but very pleasant. At this time, pt will require SNF to improve functional mobility. Goals Bed Mobility Goal Standby Assistance Transfer Goal Standby Assistance,Front Wheeled Walker Gait Goal Standby Assistance,Front Wheel Walker Gait Distance 50 Other Goals up/down 2 steps without rails mod A Days to Meet Goals 10 Frequency of Treatment Frequency Of Treatment Twice a Day Treatment Plan Physical Therapy Treatment Plan Bed Mobility Training,Transfer Training,Gait Training, Therapeutic Exercise,Balance Retraining,Post Op Education, Discharge Planning,Hot or Cold Pack,Neuromuscular Re-ed, Coordination Retraining,Manual Therapy Weight Bearing Status Weight Bearing Status Weight Bear as Tolerated Allowed Weight Bearing Amount (enter % RLE WBAT or #) (%) Recommendations To Nursing Amount of Assist Needed 2 Person Assist Discharge Recommendations PT Discharge Recommendations SNF Rehab Transportation Needs at Discharge Wheelchair/Cabulance
[2022-03-18] MEDS: LACTATED RINGERS 1,000 ML 125 ML IV (15:26)
[2022-03-18] MEDS: hydrOXYzine pamoate 25 MG CAPSULE PO (18:00)
[2022-03-18 19:45] VITALS: BP 128/57; PULSE 64; RESP 16; TEMP 37.1; O2SAT 96
[2022-03-19] MEDS: hydrOXYzine pamoate 25 MG CAPSULE PO ×2 (05:01→16:31)
[2022-03-19 05:45] VITALS: BP 133/62; PULSE 69; RESP 16; TEMP 36.9; O2SAT 95
[2022-03-19] MEDS: OXYCODONE IR 10 MG TABLET PO ×2 (05:48→12:26)
[2022-03-19 07:30] VITALS: BP 117/62; PULSE 71; RESP 22; TEMP 37; O2SAT 94
[2022-03-19] MEDS: ENOXAPARIN 40 MG/0.4 ML SYRINGE SUBCUT (08:21)
[2022-03-19] MEDS: polyethylene glycoL 3350 17 GM POWD.PACK PO (08:21)
[2022-03-19 11:30] VITALS: BP 113/70; PULSE 65; RESP 17; TEMP 37.1; O2SAT 98
--- NOTE | 2022-03-19 11:44 | CM.DPC ---
Addendum entered by Jenise Alamo R.N. 03/19/22 13:47: Spoke with Kristin this afternoon and she states that she wants to advocate for [facility] if they are unable to get pt into Inpatient Acute Rehab. Kristin states that she spoke with Andrew at [facility] and she is requesting clinicals. I verbalized that [facility] does not accept [employer]. She states that Andrew said they did. Kristin states that this facility would be better than [facility] DCP spoke with Andrew @ [facility]. Andrew states that they are sometimes contracted with [employer] and sometimes not. Andrew wants DCP to send referral. I verbalized we would. P: DCP to await placement decision from [facility]. Jenise Alamo RN/KELVIN Original Note: DCP Cont: DCP spoke with Aury at Acute Inpatient Rehab at [facility] in [place] this morning. Per Aury, they are hesitant to take this patient due to his pain level. Aury states that in order to even qualify for an inpatient acute rehab, pt has to have occupational therapy. Pt currently does not have any orders for OT. Aury requests for controlled pain, OT orders, and the family being agreeable to taking patient home following inpatient stay. DCP spoke with JOCELIN O[place]o this morning and she states that provider has not yet been by yet. DCP requested OT orders and RN will request when provider comes by. Ivelisse to use the FLACC scale for pain management. DCP spoke with Kristin, pt sister in law, to discuss pt current status. Kristin is very adamant about pt going to inpatient rehab. I verbalized the limitations and strict guidelines that pt must have in order to qualify. I did speak to her about [facility] being willing to accept pt under the agreement that the family will be taking them home to their house following surgery. Kristin is concerned pt will not progress to the level that he needs to be. Kristin states that she needs to talk to her about this and she will call DCP back this afternoon. DCP to continue to follow case. P: OT order to be placed if appropriate per MD. FLACC scale to be used for pt pain management. Pt to discharge when medically stable to SNF or Inpatient Rehab. Jenise Alamo RN/KELVIN
--- NOTE | 2022-03-19 12:27 | PT.IPTN ---
Current Diagnoses Acute posthemorrhagic anemia (03/17/22) Other specified postprocedural states (03/17/22) Surgery Performed Operation Date: 03/17/22 16:45 Actual Procedures p ORIF Hip DHS(Right) - Michael Stock MD Physical Therapy Treatment Note M2 PT-IP Current Condition Start: 03/18/22 12:21 Freq: NEEDED Status: Active Protocol: Document 03/18/22 09:30 AB (Rec: 03/18/22 12:39 AB [id number]) Physical Therapy Current Condition Current Condition Evaluation Date 03/18/22 Treatment Diagnosis s/p fall; R hip fx s/p ORIF; difficulty in walkiing Onset Date 03/17/22 M3 PT-IP Subjective Start: 03/18/22 12:21 Freq: NEEDED Status: Active Protocol: Document 03/19/22 12:27 NBM (Rec: 03/19/22 12:59 [facility] [id number]) Subjective Physical Therapy Visit Type Type Treatment Note Visit Start Time 11:55 Visit Stop Time 12:27 Total Visit Minutes 32 Number of PLANT ENGINEERING MANAGER Visits 2 Physical Therapy Visit Comments Patient Comments agreeable to do PT, but hesitant due to pain. Therapy Pain Assessment Pain When Pain Assessed At Rest Pain Present Pain Present Pain Reported Location r hip Intensity 10 Scale Used Romano-Vargas (Faces) Pain Management Techniques Apply Cold,Distraction, Modification of Treatment,Re- positioning,Timing of Activity with Medications M4 PT-IP Mobility and Gait Start: 03/18/22 12:21 Freq: NEEDED Status: Active Protocol: Document 03/19/22 12:27 NBM (Rec: 03/19/22 12:59 [facility] [id number]) PT-Bed Mobility Assessment Supine to Sit Supine to Sit Maximum Assistance,1 Person Assistance,2 Person Assistance ,Bedrails Scooting Scooting to Edge of Bed Minimal Assistance Scooting Up and Down in Bed Minimal Assistance PT-Transfer Assessment Sit to and From Stand Sit to and from Stand Maximum Assistance,2 Person Assistance,Use of Upper Extremities Equipment Transfer Assistive Device Gait Belt,Front Wheeled Walker Orthotic/Prosthetic Devices or Brace: No Transfers Transfer Destination Bed Transfer Technique Sit<>Stand Transfer Ability Level of Assist Maximum Assistance,2 Person Assistance,Use of Upper Extremities Comments Mobility Comments Pt upright in bed upon arrival and agreeable to PT. Able to scoot himself to edge of chair w/ verbal/tactile cues for hand placement. Pt sit<>stand w/ FWW w/ good strength of BUE to push up from arm rests, but still required 2 PA Max A to transition arms from bed to FWW and stand fully. Pt relied heavily on BUE during standing and avoided putting weight on RLE due to pain and fear of falling. Pt able to extend knee to toe-touch w/ neuromuscular facilitation to R quad - heavy guarding and heavy reliance of BUE to off weight. Pt used BUE for controlled descent onto EOB. Seated alternate marching x 5, then seated PROM for R knee ext x 3 min w/ 3 reps x 5SH at end-range. No dizziness reported throughout treatment. Pt requested to use urinal and scooted EOB SBA, then scooted onto bed upright min A and cues to push through LLE for scooting up, min A to straighten RLE. RN present for beginning and end of treatment session. Pt left in bed w/ SCDs, call light and all needs in reach. Gait Assessment Assistive Devices Assistive Device Gait Belt,Front Wheeled Walker Orthotic/Prosthetic Devices or Brace: No Comments Gait Comments Did not assess- Pt w/ guarding and unable to fully weight bear on RLE. PT-Balance Assessment Sitting Balance and Reactions Static Sitting Balance Ability Fair Dynamic Sitting Balance Ability Poor Standing Balance and Reactions Static Standing Balance Ability Poor Dynamic Standing Balance Ability Poor Device Used FWW M5 PT-IP Objective Assessments Start: 03/18/22 12:21 Freq: NEEDED Status: Active Protocol: Document 03/18/22 09:30 AB (Rec: 03/18/22 12:39 AB [id number]) Orientation Orientation/Cognition Level of Alertness Alert Orientation Name,Place,Situation Language Function Ability Hard of Hearing Safety Awareness Decreased Safety Awareness Memory Description Short Term Impaired Gross Range of Motion Lower Extremity ROM Assessment Right Impaired Impairments R knee increase guarding. unable to fully straighten. ~ 30 deg less to full ext Strength Lower Extremity Strength Assessment Right Impaired Hip 3-/5 Knee 3-/5 Sensation Assessment Sensation Gross Sensation WNL Muscle Tone Muscle Tone WNL Yes M6 PT-IP Treatment Start: 03/18/22 12:21 Freq: NEEDED Status: Active Protocol: Document 03/19/22 12:27 NBM (Rec: 03/19/22 12:59 [facility] [id number]) Physical Therapy Treatment Education Education Provided Precautions,Weight Bearing Status,Post-Op Packet,Safety M7 PT-IP Assessment and Plan Start: 03/18/22 12:21 Freq: NEEDED Status: Active Protocol: Document 03/19/22 12:27 [facility] (Rec: 03/19/22 12:59 [facility] [id number]) PT Summary Assessment and Plan Potential Rehabilitation Potential Fair Status of Condition at Evaluation Evolving Summary Impairments Pain,ROM,Strength,Balance, Coordination,Sensation,Tone, Cognition,Bed Mobility, Transfers,Gait,Activity Tolerance Assessment Summary Pt MAx A for sit<>Stand and unable to weightbear fully through RLE. Pt demonstrates significant guarding of LLE keeping knee flexed and relying on BUE to off weight RLE. Was able to straighten R knee w/ neuromuscular facilitation to R quad from non-weightbearing to toe-touch but pt grimaced w/ pain and requested to sit. R knee extension improved w/ PROM in sitting but pt was challenged with holding R knee extension in end-range for 5 sec. Pt has some difficulty following directions, needing increased cues, but very pleasant. At this time, pt will require SNF to improve functional mobility. Goals Bed Mobility Goal Standby Assistance Transfer Goal Standby Assistance,Front Wheeled Walker Gait Goal Standby Assistance,Front Wheel Walker Gait Distance 50 Other Goals up/down 2 steps without rails mod A Days to Meet Goals 10 Frequency of Treatment Frequency Of Treatment Twice a Day Treatment Plan Physical Therapy Treatment Plan Bed Mobility Training,Transfer Training,Gait Training, Therapeutic Exercise,Balance Retraining,Post Op Education, Discharge Planning,Hot or Cold Pack,Neuromuscular Re-ed, Coordination Retraining,Manual Therapy Weight Bearing Status Weight Bearing Status Weight Bear as Tolerated Allowed Weight Bearing Amount (enter % RLE WBAT or #) (%) Recommendations To Nursing Amount of Assist Needed 2 Person Assist Discharge Recommendations PT Discharge Recommendations SNF Rehab Transportation Needs at Discharge Wheelchair/Cabulance
--- NOTE | 2022-03-19 12:44 | PM.PNPO.1 ---
Subjective Subjective Date Patient Seen: 03/19/22 Time Patient Seen: 12:44 Interval history: Patient's pain is mild. Denies fever or chills. No nausea or vomiting. Exam Vital Signs (past 8 hours): - 03/19/22 05:45 03/19/22 07:30 Temperature 98.5 F 98.6 F Pulse Rate 69 71 Respiratory Rate 16 22 Blood Pressure 133/62 117/62 Pulse Oximetry 95 94 Oxygen Flow Rate 0 0 Oxygen Delivery Method Room Air Oxygen Flow Rate 0 Narrative Exam Narrative: 61-year-old male resting comfortably in bed having lunch. No apparent distress. Dressing Clean, dry, intact.. Sensation intact bilateral lower extremities. Motor functions intact bilateral lower extremities. Const General: cooperative and comfortable Objective Labs Result Diagrams: 03/18/22 05:36 03/17/22 13:08 [facility] Medical History Developmental delay, moderate Social History household members: family Smoking Status: Never smoker alcohol intake: current Assessment & Plan Post-op Postoperative Procedures: Procedures Operation Date: 03/17/22 16:45 Actual Procedure Side Surgeon p ORIF Hip DHS Right Michael Stock MD Postoperative day: 2 Postoperative status: doing well Postoperative plan: routine post-op care Postoperative plan narrative: Mobilize with physical therapy, weight-bearing as tolerated Multimodal pain management Currently 2 person assist and may need half-way facility placement. Currently having difficulty the with weight-bearing, guarding, strength and balance per physical therapy. Quality VTE Deep Vein Thrombosis/Pulmonary Embolism Present on Admission: No
--- NOTE | 2022-03-19 13:48 | CM.DPNOTE ---
Faxed referral to [facility]. Jojo Dawson CM Assist
--- NOTE | 2022-03-19 14:20 | PT.IPTN ---
Current Diagnoses Acute posthemorrhagic anemia (03/17/22) Other specified postprocedural states (03/17/22) Surgery Performed Operation Date: 03/17/22 16:45 Actual Procedures p ORIF Hip DHS(Right) - Michael Stock MD Physical Therapy Treatment Note M2 PT-IP Current Condition Start: 03/18/22 12:21 Freq: NEEDED Status: Active Protocol: Document 03/18/22 09:30 AB (Rec: 03/18/22 12:39 AB [id number]) Physical Therapy Current Condition Current Condition Evaluation Date 03/18/22 Treatment Diagnosis s/p fall; R hip fx s/p ORIF; difficulty in walkiing Onset Date 03/17/22 M3 PT-IP Subjective Start: 03/18/22 12:21 Freq: NEEDED Status: Active Protocol: Document 03/19/22 15:44 NBM (Rec: 03/19/22 17:22 NBM [id number]) Subjective Physical Therapy Visit Type Type Treatment Note Visit Start Time 15:42 Visit Stop Time 16:20 Total Visit Minutes 38 Number of INTERNAL MEDICINE VETERINARY TECHNICIAN Visits 3 Physical Therapy Visit Comments Patient Comments agreeable to do PT Therapy Pain Assessment Pain When Pain Assessed At Rest Pain Present Pain Present Pain Reported M4 PT-IP Mobility and Gait Start: 03/18/22 12:21 Freq: NEEDED Status: Active Protocol: Document 03/19/22 15:44 NBM (Rec: 03/19/22 17:22 NBM [id number]) PT-Bed Mobility Assessment Supine to Sit Supine to Sit Maximum Assistance,1 Person Assistance,Head of Bed Elevated,Bedrails Sit to Supine Sit to Supine Minimal Assistance Scooting Scooting to Edge of Bed Minimal Assistance Scooting Up and Down in Bed Minimal Assistance PT-Transfer Assessment Comments Mobility Comments Pt upright in bed upon arrival and agreeable to PT. Max A for LE management supine to Sit EOB. Able to scoot himself to EOB w/ vc for hand placement. Seated PROM focusing on R knee ext x 3'. LAQ x 5, verbal/tactile cues for ROM which improved w/ each rep. Seated marching x 10 delphine . Pt requested to use urinal and required mod A for LE management Sitting EOB to Supine. Pt then scooted up in bed, min A and cues to push through LLE for scooting up, min A to straighten RLE. Extended time needed for pt to perform exercises due to cognitive delay. Pt left in bed w/ SCDs, call light and all needs in reach. Gait Assessment Assistive Devices Assistive Device Gait Belt Orthotic/Prosthetic Devices or Brace: No Comments Gait Comments Did not assess PT-Balance Assessment Sitting Balance and Reactions Static Sitting Balance Ability Fair Dynamic Sitting Balance Ability Poor Standing Balance and Reactions Static Standing Balance Ability Poor Dynamic Standing Balance Ability Poor Device Used FWW M5 PT-IP Objective Assessments Start: 03/18/22 12:21 Freq: NEEDED Status: Active Protocol: Document 03/18/22 09:30 AB (Rec: 03/18/22 12:39 AB [id number]) Orientation Orientation/Cognition Level of Alertness Alert Orientation Name,Place,Situation Language Function Ability Hard of Hearing Safety Awareness Decreased Safety Awareness Memory Description Short Term Impaired Gross Range of Motion Lower Extremity ROM Assessment Right Impaired Impairments R knee increase guarding. unable to fully straighten. ~ 30 deg less to full ext Strength Lower Extremity Strength Assessment Right Impaired Hip 3-/5 Knee 3-/5 Sensation Assessment Sensation Gross Sensation WNL Muscle Tone Muscle Tone WNL Yes M6 PT-IP Treatment Start: 03/18/22 12:21 Freq: NEEDED Status: Active Protocol: Document 03/19/22 15:44 NB (Rec: 03/19/22 17:22 [facility] [id number]) Physical Therapy Treatment Education Education Provided Precautions,Post-Op Packet, Safety M7 PT-IP Assessment and Plan Start: 03/18/22 12:21 Freq: NEEDED Status: Active Protocol: Document 03/19/22 15:44 [facility] (Rec: 03/19/22 17:22 [facility] [id number]) PT Summary Assessment and Plan Potential Rehabilitation Potential Fair Status of Condition at Evaluation Evolving Summary Impairments Pain,ROM,Strength,Balance, Coordination,Sensation,Tone, Cognition,Bed Mobility, Transfers,Gait,Activity Tolerance Assessment Summary Pt's R knee PROM improved with repetition, and AROM improved w/ repetition and neuromuscular facilitation to R quad in sitting. Pt has some difficulty following directions, needing increased cues, but very pleasant. At this time, pt will require SNF to improve functional mobility. Goals Bed Mobility Goal Standby Assistance Transfer Goal Standby Assistance,Front Wheeled Walker Gait Goal Standby Assistance,Front Wheel Walker Gait Distance 50 Other Goals up/down 2 steps without rails mod A Days to Meet Goals 10 Frequency of Treatment Frequency Of Treatment Twice a Day Treatment Plan Physical Therapy Treatment Plan Bed Mobility Training,Transfer Training,Gait Training, Therapeutic Exercise,Balance Retraining,Post Op Education, Discharge Planning,Hot or Cold Pack,Neuromuscular Re-ed, Coordination Retraining,Manual Therapy Weight Bearing Status Weight Bearing Status Weight Bear as Tolerated Allowed Weight Bearing Amount (enter % RLE WBAT or #) (%) Recommendations To Nursing Amount of Assist Needed 2 Person Assist Discharge Recommendations PT Discharge Recommendations SNF Rehab Transportation Needs at Discharge Wheelchair/Cabulance
[2022-03-19 19:35] VITALS: BP 106/57; PULSE 68; RESP 18; TEMP 37.2; O2SAT 95
[2022-03-19] MEDS: SODIUM CHLORIDE 0.9% FLUSH 10 ML IV (20:51)
[2022-03-20 00:11] VITALS: BP 117/64; PULSE 65; RESP 16; TEMP 37.1; O2SAT 95
[2022-03-20] MEDS: OXYCODONE IR 10 MG TABLET PO (02:01)
[2022-03-20 06:02] VITALS: BP 116/65; PULSE 63; RESP 16; TEMP 36.6; O2SAT 95
[2022-03-20] MEDS: hydrOXYzine pamoate 25 MG CAPSULE PO ×2 (06:30→21:16)
--- NOTE | 2022-03-20 07:17 | P.DS_ITS ---
History of Present Illness History of Present Illness Date Patient Seen: 03/20/22 Time Patient Seen: 07:17 Chief complaint: R hip pain Narrative: Operative Date/Time/Diagnoses Date of procedure: 03/17/22 Pre-op diagnosis: Right hip intertrochanteric fracture, displaced, closed Post-op diagnosis: same Procedure & Clinicians Procedure: Open reduction internal fixation of right hip fracture with dynamic hip screw construct Same procedure as scheduled: Yes Indications: The patient is a 61-year-old mildly developmentally delayed gentleman who suffered a fall 2 days ago and was unable to walk.? He eventually was taken [facility] emergency room by his family for evaluation and radiographs revealed a displaced intertrochanteric hip fracture.? He has been admitted for open reduction internal fixation and has agreed to this after discussion the risks benefits and alternatives as documented in my history and physical note. Surgeon: Michael Stock Click Yes if Unassisted: Yes Anesthesia Type: General and Local Operative Notes Findings: Anatomic reduction. Closure Type: primary Specimen(s): none sent Prosthetic devices, grafts, tissues, transplants, or devices: Implants used in this procedure manufactured by the [employer] and included a dynamic hip screw with a 105 mm lag screw and a 135 degree long barrel 4 hole side plate and 4 cortical screws. Applied: implant(s) Estimated Blood Loss (mL): 150 Blood products transfused: none Discharge Providers Provider Date of admission: 03/17/22 13:33 Discharge Date: 03/20/22 Consults: 03/17/22 20:33 Consult to Discharge Planning Routine Comment: Consult to Physical Therapy Evaluate & Treat Comment: Physician Instructions: Evaluate and Treat 03/17/22 21:29 Consult to Respiratory Therapy Evaluate & Treat Comment: pt sounds wet post op Physician Instructions: Evaluate and treat Discharge provider: Karis Doherty PA-C Summary Hospital Course Discharge Diagnosis: s/p ORIF R hip fracture Hospital Course: Mr Serrano's hospital course was unremarkable. On POD# 3 he was feeling well and his pain was well-controlled on oral meds. He was eating and voiding without difficulty. He is developmentally delayed both cognitively and p hysically at baseline and required 2 person assist w/ PT and needed [facility] at time of discharge for further rehab. Exam Vital Signs (past 8 hours): - 03/20/22 00:11 03/20/22 06:02 Temperature 98.8 F 97.9 F Pulse Rate 65 63 Respiratory Rate 16 16 Blood Pressure 117/64 116/65 Pulse Oximetry 95 95 Oxygen Flow Rate 0 0 Oxygen Delivery Method Room Air Oxygen Flow Rate 0 Narrative Exam Narrative: 5/5 strength in hip flexors, quadriceps, hamstrings, DF, PF, EHL bilaterally. Sensation to light touch intact throughout BLE. Calves soft, compressible, nontender and without palpable cords or masses. Aquacel dressing CDI. Objective Labs Result Diagrams: 03/18/22 05:36 03/17/22 13:08 [facility] Medical History Developmental delay, moderate Social History household members: family Smoking Status: Never smoker alcohol intake: current Discharge Assessment & Plan Assessment and Plan Assessment: POD# 3 s/p fixation of right hip fracture. Plan of Treatment: Continue enoxaparin for 7 more days (total 10 days post op) for VTE prophylaxis. WBAT to RLE. D/c to SNF. F/u in office in 10-14 days post-op. Discharge Plan Discharge Plan Patient Disposition: SNF Transfer to: [facility] Discharge orders & Medications Prescriptions: New enoxaparin [Lovenox] 40 mg/0.4 mL Syringe 40 mg SUBCUT DAILY 7 Days Qty: 2.8 0RF hydroxyzine pamoate 25 mg Capsule 25 mg PO Q4-6H PRN (Reason: Spasms) Qty: 120 0RF oxycodone 5 mg Tablet 5 mg PO Q4-6H Qty: 60 0RF Rx Instructions: Give 1-2 tabs q 4-6hrs Follow up/Referrals: Michael Stock MD [Physician] - 2 Weeks (Follow up w/ GLORY @ [facility] between March 27-.) Diet/Activity/Treatments Diet: Diet as Tolerated Activity: Weight bearing as tolerated to right leg. Cold/Heat Therapy: Ice as needed to hip for pain. Skin/Wound/Dressing Care Report to your healthcare provider any signs of infection, such as:: chills, fever, night sweats, unusual drainage and unusual redness Dressing: May shower. Leave Aquacel dressing in place until follow up in office. No bathing or otherwise soaking incision. Special Rehabilitation Services Reason for rehabilitation: Post-operative therapy Rehab type: Physical therapy Restrictions to mobility: WBAT to right leg. Visit Report/Discharge Packet Instructions: DI for Open Reduction Internal Fixation Surgery, DI for Prescription Opioid Use Stand Alone Forms: Surgery Discharge Quality VTE Deep Vein Thrombosis/Pulmonary Embolism Present on Admission: No
[2022-03-20 07:30] VITALS: BP 120/70; PULSE 66; RESP 19; TEMP 37.1; O2SAT 97
--- NOTE | 2022-03-20 08:49 | PC.NURSE ---
Addendum entered by Radha Gonzalez R.N. 03/20/22 17:56: Patient ate well at dinner, he ordered to entree meals with dessert and ate 100%. He is on his callbell frequently for small things, pleasant. Resting and watching television now. Original Note: Assess- Patient is developmentally delayed, he is oriented and seems to know why he is hear. He is eating breakfast and enjoys his sami toast. R.hip dressing is cdi, patient wants to bend his leg at the knee, ecouraged to straighten. Pillow in between legs. Denies pain at this time, will check this throughout the day.
[2022-03-20] MEDS: OXYCODONE IR 5 MG TABLET PO ×2 (10:32→21:16)
[2022-03-20] MEDS: ENOXAPARIN 40 MG/0.4 ML SYRINGE SUBCUT (10:32)
[2022-03-20] MEDS: SODIUM CHLORIDE 0.9% FLUSH 10 ML IV ×2 (10:33→21:16)
[2022-03-20] MEDS: polyethylene glycoL 3350 17 GM POWD.PACK PO (10:33)
[2022-03-20 12:05] VITALS: BP 133/59; PULSE 77; RESP 20; O2SAT 100
--- NOTE | 2022-03-20 12:09 | PT.IPTN ---
Current Diagnoses Acute posthemorrhagic anemia (03/17/22) Other specified postprocedural states (03/17/22) Surgery Performed Operation Date: 03/17/22 16:45 Actual Procedures p ORIF Hip DHS(Right) - Michael Stock MD Physical Therapy Treatment Note M2 PT-IP Current Condition Start: 03/18/22 12:21 Freq: NEEDED Status: Active Protocol: Document 03/18/22 09:30 AB (Rec: 03/18/22 12:39 AB [id number]) Physical Therapy Current Condition Current Condition Evaluation Date 03/18/22 Treatment Diagnosis s/p fall; R hip fx s/p ORIF; difficulty in walkiing Onset Date 03/17/22 M3 PT-IP Subjective Start: 03/18/22 12:21 Freq: NEEDED Status: Active Protocol: Document 03/20/22 12:09 NBM (Rec: 03/20/22 16:01 NBM [id number]) Subjective Physical Therapy Visit Type Type Treatment Note Visit Start Time 11:52 Visit Stop Time 12:09 Total Visit Minutes 17 Number of TURRET PRESS OPERATOR Visits 4 Physical Therapy Visit Comments Patient Comments agreeable to do PT Therapy Pain Assessment Pain When Pain Assessed At Rest Pain Present Pain Present Pain Reported M4 PT-IP Mobility and Gait Start: 03/18/22 12:21 Freq: NEEDED Status: Active Protocol: Document 03/20/22 12:09 NBM (Rec: 03/20/22 16:01 NBM [id number]) PT-Bed Mobility Assessment Supine to Sit Supine to Sit Maximum Assistance,1 Person Assistance,Head of Bed Elevated,Bedrails Sit to Supine Sit to Supine Minimal Assistance Scooting Scooting to Edge of Bed Minimal Assistance Scooting Up and Down in Bed Minimal Assistance PT-Transfer Assessment Sit to and From Stand Sit to and from Stand Maximum Assistance,2 Person Assistance,Use of Upper Extremities Equipment Transfer Assistive Device Gait Belt,Front Wheeled Walker Orthotic/Prosthetic Devices or Brace: No Comments Mobility Comments Pt upright in bed upon arrival and agreeable to PT. Pt attempted R SAQ but unable to straighten R leg. NMF to R quad improved R knee extension but still flexed. Min A for LE management supine to Sit EOB. Able to scoot himself to EOB w/ vc for hand placement. Seated PROM focusing on R knee ext x 2'. LAQ x 3 w/ 5SH, verbal/tactile cues for ROM which improved w/ each rep. Pt performed Sit<>Stand x 3 w/ FWW Max A w/ 2PA, cues for hand and foot placement and upright posture. Pt avoided weightbearing through RLE but achieved toetouch w/ NMF to R quad. Pt returned to sitting upright in bed w/ Min A to Mod A for LE management and scooting. Extended time needed for pt to perform exercises due to cognitive delay. Pt left in bed w/ SCDs, Gait Assessment Comments Gait Comments Did not assess. PT-Balance Assessment Sitting Balance and Reactions Static Sitting Balance Ability Fair Dynamic Sitting Balance Ability Poor Standing Balance and Reactions Static Standing Balance Ability Poor Dynamic Standing Balance Ability Poor Device Used FWW M5 PT-IP Objective Assessments Start: 03/18/22 12:21 Freq: NEEDED Status: Active Protocol: Document 03/18/22 09:30 AB (Rec: 03/18/22 12:39 AB [email or web address]) Orientation Orientation/Cognition Level of Alertness Alert Orientation Name,Place,Situation Language Function Ability Hard of Hearing Safety Awareness Decreased Safety Awareness Memory Description Short Term Impaired Gross Range of Motion Lower Extremity ROM Assessment Right Impaired Impairments R knee increase guarding. unable to fully straighten. ~ 30 deg less to full ext Strength Lower Extremity Strength Assessment Right Impaired Hip 3-/5 Knee 3-/5 Sensation Assessment Sensation Gross Sensation WNL Muscle Tone Muscle Tone WNL Yes M6 PT-IP Treatment Start: 03/18/22 12:21 Freq: NEEDED Status: Active Protocol: Document 03/20/22 12:09 BRITTANIE (Rec: 03/20/22 16:01 [facility] [id number]) Physical Therapy Treatment Education Education Provided Precautions,Post-Op Packet, Safety M7 PT-IP Assessment and Plan Start: 03/18/22 12:21 Freq: NEEDED Status: Active Protocol: Document 03/20/22 12:09 BRITTANIE (Rec: 03/20/22 16:01 [facility] [id number]) PT Summary Assessment and Plan Potential Rehabilitation Potential Fair Status of Condition at Evaluation Evolving Summary Impairments Pain,ROM,Strength,Balance, Coordination,Sensation,Tone, Cognition,Bed Mobility, Transfers,Gait,Activity Tolerance Assessment Summary Pt is Max A 2PA for Sit<>Stand and unable to weightbear fully through RLE and demonstrates guarding of RLE. He was able to perform Sit<> Stand x 3 w/ FWW Max A, 2PA w/ cues for scooting, hand and foot placement, and upright posture. Pt has some difficulty following directions, needing increased cues, but very pleasant. At this time, pt will require SNF to improve functional mobility. Goals Bed Mobility Goal Standby Assistance Transfer Goal Standby Assistance,Front Wheeled Walker Gait Goal Standby Assistance,Front Wheel Walker Gait Distance 50 Other Goals up/down 2 steps without rails mod A Days to Meet Goals 10 Frequency of Treatment Frequency Of Treatment Twice a Day Treatment Plan Physical Therapy Treatment Plan Bed Mobility Training,Transfer Training,Gait Training, Therapeutic Exercise,Balance Retraining,Post Op Education, Discharge Planning,Hot or Cold Pack,Neuromuscular Re-ed, Coordination Retraining,Manual Therapy Weight Bearing Status Weight Bearing Status Weight Bear as Tolerated Allowed Weight Bearing Amount (enter % RLE WBAT or #) (%) Recommendations To Nursing Amount of Assist Needed 2 Person Assist Discharge Recommendations PT Discharge Recommendations SNF Rehab Transportation Needs at Discharge Wheelchair/Cabulance
--- NOTE | 2022-03-20 14:01 | CM.DPC ---
DCP Cont: KELVIN has spoken with [employer] and they are still working on authorization from their admissions to run pt bernie auth. KELVIN has completed PASRR sheet and due to level II PASRR needed, KELVIN faxed over the PASRR to Pamela. Lacey Serrano is the assigned person working on this case and her number is [phone]. P: Once pt has a placement for SNF, pt to discharge. Jenise Alamo RN/JOIP
[2022-03-20 15:25] VITALS: BP 120/50; PULSE 69; RESP 20; TEMP 37.3; O2SAT 97
--- NOTE | 2022-03-20 16:30 | PT.IPTN ---
Current Diagnoses Acute posthemorrhagic anemia (03/17/22) Other specified postprocedural states (03/17/22) Surgery Performed Operation Date: 03/17/22 16:45 Actual Procedures p ORIF Hip DHS(Right) - Michael Stock MD Physical Therapy Treatment Note M2 PT-IP Current Condition Start: 03/18/22 12:21 Freq: NEEDED Status: Active Protocol: Document 03/18/22 09:30 AB (Rec: 03/18/22 12:39 AB [email or web address]) Physical Therapy Current Condition Current Condition Evaluation Date 03/18/22 Treatment Diagnosis s/p fall; R hip fx s/p ORIF; difficulty in walkiing Onset Date 03/17/22 M3 PT-IP Subjective Start: 03/18/22 12:21 Freq: NEEDED Status: Active Protocol: Document 03/20/22 18:07 NBM (Rec: 03/20/22 18:13 NB [id number]) Subjective Physical Therapy Visit Type Type Treatment Note Visit Start Time 16:15 Visit Stop Time 16:30 Total Visit Minutes 15 Number of CARDIAC/VASCULAR SONOGRAPHER Visits 5 Physical Therapy Visit Comments Patient Comments agreeable to do PT Therapy Pain Assessment Pain When Pain Assessed At Rest Pain Present Pain Present Pain Reported Location r hip Intensity 9 Scale Used Romano-Vargas (Faces) Pain Management Techniques Apply Cold,Distraction, Modification of Treatment,Re- positioning,Timing of Activity with Medications M4 PT-IP Mobility and Gait Start: 03/18/22 12:21 Freq: NEEDED Status: Active Protocol: Document 03/20/22 18:07 NBM (Rec: 03/20/22 18:13 NB [id number]) PT-Bed Mobility Assessment Supine to Sit Supine to Sit Moderate Assistance,1 Person Assistance,Head of Bed Elevated,Bedrails Sit to Supine Sit to Supine Moderate Assistance Scooting Scooting to Edge of Bed Minimal Assistance Scooting Up and Down in Bed Standby Assistance PT-Balance Assessment Sitting Balance and Reactions Static Sitting Balance Ability Fair Dynamic Sitting Balance Ability Poor Standing Balance and Reactions Static Standing Balance Ability Poor Dynamic Standing Balance Ability Poor Device Used FWW M5 PT-IP Objective Assessments Start: 03/18/22 12:21 Freq: NEEDED Status: Active Protocol: Document 03/18/22 09:30 AB (Rec: 03/18/22 12:39 AB [id number]) Orientation Orientation/Cognition Level of Alertness Alert Orientation Name,Place,Situation Language Function Ability Hard of Hearing Safety Awareness Decreased Safety Awareness Memory Description Short Term Impaired Gross Range of Motion Lower Extremity ROM Assessment Right Impaired Impairments R knee increase guarding. unable to fully straighten. ~ 30 deg less to full ext Strength Lower Extremity Strength Assessment Right Impaired Hip 3-/5 Knee 3-/5 Sensation Assessment Sensation Gross Sensation WNL Muscle Tone Muscle Tone WNL Yes M6 PT-IP Treatment Start: 03/18/22 12:21 Freq: NEEDED Status: Active Protocol: Document 03/20/22 18:07 NB (Rec: 03/20/22 18:13 [facility] [id number]) Physical Therapy Treatment Exercises Exercises Ankle Pumps,Quad Sets,Heel Slides,Short Arc Quads Education Education Provided Precautions,Safety M7 PT-IP Assessment and Plan Start: 03/18/22 12:21 Freq: NEEDED Status: Active Protocol: Document 03/20/22 18:07 NB (Rec: 03/20/22 18:13 [facility] [id number]) PT Summary Assessment and Plan Potential Rehabilitation Potential Fair Status of Condition at Evaluation Evolving Summary Impairments Pain,ROM,Strength,Balance, Coordination,Sensation,Tone, Cognition,Bed Mobility, Transfers,Gait,Activity Tolerance Assessment Summary Pt demonstrates increased R quad activation in sitting w/ neuromuscular facilitation, which improves knee extension ROM. Pt has some difficulty following directions, needing increased cues, but very pleasant. At this time, pt will require SNF to improve functional mobility. Goals Bed Mobility Goal Standby Assistance Transfer Goal Standby Assistance,Front Wheeled Walker Gait Goal Standby Assistance,Front Wheel Walker Gait Distance 50 Other Goals up/down 2 steps without rails mod A Days to Meet Goals 10 Frequency of Treatment Frequency Of Treatment Twice a Day Treatment Plan Physical Therapy Treatment Plan Bed Mobility Training,Transfer Training,Gait Training, Therapeutic Exercise,Balance Retraining,Post Op Education, Discharge Planning,Hot or Cold Pack,Neuromuscular Re-ed, Coordination Retraining,Manual Therapy Weight Bearing Status Weight Bearing Status Weight Bear as Tolerated Allowed Weight Bearing Amount (enter % RLE WBAT or #) (%) Recommendations To Nursing Amount of Assist Needed 2 Person Assist Discharge Recommendations PT Discharge Recommendations SNF Rehab Transportation Needs at Discharge Wheelchair/Cabulance
[2022-03-20 20:10] VITALS: BP 119/72; PULSE 69; RESP 18; TEMP 37; O2SAT 96
[2022-03-21 01:53] VITALS: BP 120/62; PULSE 73; RESP 16; TEMP 36.9; O2SAT 95
--- NOTE | 2022-03-21 05:03 | PC.NURSE ---
Patient has been resting in bed this shift. CMS +. Patient able to help with transfer while in bed. Pain has been controlled with Vistaril and Percolone. Patient has been A&O, calm and cooperative.
[2022-03-21 08:00] VITALS: BP 105/60; PULSE 72; RESP 17; TEMP 36.9; O2SAT 96
--- NOTE | 2022-03-21 09:26 | CM.DPC ---
Addendum entered by Fatuma Bain R.N. 03/21/22 15:43: Faxed over today's, and last couple of days of P.T. notes to [employer] for them to send to [facility] [place]. Katelyn at [facility] indicated, they can accept, working on auth. According to Katelyn, they are now contracted with [employer], this was a recent change. Have not heard back from Regine at [facility]. Original Note: DCP Cont: Called [employer] to follow up with auth, left them a message. Spoke to Katelyn. She stated, she did not know until last pm if they could take his [employer], had to email her team, but found out that they can. Stated, she would initiate auth today, but most likely, will not be able to accept until Wednesday. Asked her to go ahead and initiate auth. Left a message with Regine at [facility] to see if she had initiated auth as well. Called [facility], and spoke to Aury, as it was noted, family was hoping that he could go to this facility. Found out that there was no O.T. ordered, would also need this discipline as well. Aury also indicated that they have no staffing this weekend for new admissions, but do have about 5 beds currently. She is also unsure about accepting this patient due to his pain level and needs. P: DCP to continue to work on plan. At this time, [employer] is initiating auth for [employer], and there is a call out to Regine at [facility]. Fatuma Bain, RN/Rubber Belt Splicer
--- NOTE | 2022-03-21 09:27 | PT.IPTN ---
Current Diagnoses Acute posthemorrhagic anemia (03/17/22) Other specified postprocedural states (03/17/22) Surgery Performed Operation Date: 03/17/22 16:45 Actual Procedures p ORIF Hip DHS(Right) - Michael Stock MD Physical Therapy Treatment Note M2 PT-IP Current Condition Start: 03/18/22 12:21 Freq: NEEDED Status: Active Protocol: Document 03/18/22 09:30 AB (Rec: 03/18/22 12:39 AB [email or web address]) Physical Therapy Current Condition Current Condition Evaluation Date 03/18/22 Treatment Diagnosis s/p fall; R hip fx s/p ORIF; difficulty in walkiing Onset Date 03/17/22 M3 PT-IP Subjective Start: 03/18/22 12:21 Freq: NEEDED Status: Active Protocol: Document 03/21/22 09:27 NBM (Rec: 03/21/22 09:51 NB [id number]) Subjective Physical Therapy Visit Type Type Treatment Note Visit Start Time 09:12 Visit Stop Time 09:27 Total Visit Minutes 15 Number of WATCH REPAIRER Visits 6 Physical Therapy Visit Comments Patient Comments agreeable to do PT M4 PT-IP Mobility and Gait Start: 03/18/22 12:21 Freq: NEEDED Status: Active Protocol: Document 03/21/22 09:27 NBM (Rec: 03/21/22 09:51 NB [id number]) PT-Bed Mobility Assessment Supine to Sit Supine to Sit Moderate Assistance,1 Person Assistance,Head of Bed Elevated,Bedrails Sit to Supine Sit to Supine Moderate Assistance,1 Person Assistance Scooting Scooting to Edge of Bed Contact Guard Assistance Scooting Up and Down in Bed Standby Assistance PT-Transfer Assessment Sit to and From Stand Sit to and from Stand Maximum Assistance,2 Person Assistance,Use of Upper Extremities Equipment Transfer Assistive Device Gait Belt,Front Wheeled Walker Orthotic/Prosthetic Devices or Brace: No Transfers Transfer Destination Bed Transfer Technique Sit<>Stand Transfer Ability Level of Assist Maximum Assistance,2 Person Assistance,Use of Upper Extremities Comments Mobility Comments Pt upright in bed upon arrival and agreeable to PT. Quad sets x 3 SH w/ NMF, SAQ x 5 w/ NMF. Mod A for scooting EOB and LE management supine to Sit EOB. Pt performed Sit<> Stand x 5 w/ FWW Max A w/ 2PA, cues for hand placement and upright posture. Pt demonstrated RLE toe touch weightbearing without NMF. Pt declined to ambulate and returned to sitting upright in bed w/ Min A to Mod A for LE management and scooting. Pt left in bed COMPUTER SYSTEMS ARCHITECT in room, call light and all needs within reach. Gait Assessment Assistive Devices Assistive Device Gait Belt Orthotic/Prosthetic Devices or Brace: No Comments Gait Comments Did not assess. Pt declined to ambulate due to fatigue. PT-Balance Assessment Sitting Balance and Reactions Static Sitting Balance Ability Fair Dynamic Sitting Balance Ability Poor Standing Balance and Reactions Static Standing Balance Ability Poor Dynamic Standing Balance Ability Poor Device Used FWW M5 PT-IP Objective Assessments Start: 03/18/22 12:21 Freq: NEEDED Status: Active Protocol: Document 03/18/22 09:30 AB (Rec: 03/18/22 12:39 AB [id number]) Orientation Orientation/Cognition Level of Alertness Alert Orientation Name,Place,Situation Language Function Ability Hard of Hearing Safety Awareness Decreased Safety Awareness Memory Description Short Term Impaired Gross Range of Motion Lower Extremity ROM Assessment Right Impaired Impairments R knee increase guarding. unable to fully straighten. ~ 30 deg less to full ext Strength Lower Extremity Strength Assessment Right Impaired Hip 3-/5 Knee 3-/5 Sensation Assessment Sensation Gross Sensation WNL Muscle Tone Muscle Tone WNL Yes M6 PT-IP Treatment Start: 03/18/22 12:21 Freq: NEEDED Status: Active Protocol: Document 03/21/22 09:27 NB (Rec: 03/21/22 09:51 [facility] [id number]) Physical Therapy Treatment Exercises Exercises Quad Sets,Short Arc Quads Education Education Provided Precautions,Weight Bearing Status,Safety M7 PT-IP Assessment and Plan Start: 03/18/22 12:21 Freq: NEEDED Status: Active Protocol: Document 03/21/22 09:27 NBM (Rec: 03/21/22 09:51 [facility] [id number]) PT Summary Assessment and Plan Potential Rehabilitation Potential Fair Status of Condition at Evaluation Evolving Summary Impairments Pain,ROM,Strength,Balance, Coordination,Sensation,Tone, Cognition,Bed Mobility, Transfers,Gait,Activity Tolerance Assessment Summary Pt continues to be challenged w/ functional mobility and is 2PA Max A w/ Sit<>Stand and declined to attempt ambulation due to fatigue. Pt demonstrates improved activity tolerance with increase of 5x Sit<>Stand today from 3x yesterday, verbal cueing for hand placement and upright posture. Improved R quad activation in standing w/FWW as demonstrated w/ RLE toe touch without NMF w/ each Sit< >Stand. Pt has some difficulty following directions, needing increased cues, but very pleasant. At this time, pt will require SNF to improve functional mobility. Goals Bed Mobility Goal Standby Assistance Transfer Goal Standby Assistance,Front Wheeled Walker Gait Goal Standby Assistance,Front Wheel Walker Gait Distance 50 Other Goals up/down 2 steps without rails mod A Days to Meet Goals 10 Frequency of Treatment Frequency Of Treatment Twice a Day Treatment Plan Physical Therapy Treatment Plan Bed Mobility Training,Transfer Training,Gait Training, Therapeutic Exercise,Balance Retraining,Post Op Education, Discharge Planning,Hot or Cold Pack,Neuromuscular Re-ed, Coordination Retraining,Manual Therapy Weight Bearing Status Weight Bearing Status Weight Bear as Tolerated Allowed Weight Bearing Amount (enter % RLE WBAT or #) (%) Recommendations To Nursing Amount of Assist Needed 2 Person Assist Discharge Recommendations PT Discharge Recommendations SNF Rehab Transportation Needs at Discharge Wheelchair/Cabulance
--- NOTE | 2022-03-21 10:20 | PM.PNPO.1 ---
Subjective Subjective Date Patient Seen: 03/21/22 Time Patient Seen: 10:20 Interval history: Pts discharge is still pending SNF placement. Discharge paperwork updated to include need for OT, per CM notes, looks like probable d/c on Wednesday. Complains of difficulty with ambulation, hesitant with all movement due to pain. Exam Vital Signs (past 8 hours): - 03/21/22 08:00 Temperature 98.4 F Pulse Rate 72 Respiratory Rate 17 Blood Pressure 105/60 Pulse Oximetry 96 Oxygen Flow Rate 0 Oxygen Delivery Method Room Air Oxygen Flow Rate 0 Narrative Exam Narrative: Guarded movement with both legs but hip flexion, quadriceps, hamstrings, DF, PF, EHL intact bilaterally. Sensation to light touch intact in both legs. Calves soft, compressible, nontender and without palpable cords or masses. Objective Labs Result Diagrams: 03/18/22 05:36 03/17/22 13:08 [facility] Medical History Developmental delay, moderate Social History household members: family Smoking Status: Never smoker alcohol intake: current Assessment & Plan Post-op Assessment and plan (1) Status post hip surgery: Assessment and Plan narrative: WBAT to RLE. Continue PT, SNF for extended rehab. Enoxaparin for VTE prophylaxis through March 27. Follow up in office between March 27 and March 31. (2) Developmental delay, moderate: (3) Acute postoperative anemia due to expected blood loss: Assessment and Plan narrative: Asymptomatic, no intervention needed. Postoperative Procedures: Procedures Operation Date: 03/17/22 16:45 Actual Procedure Side Surgeon p ORIF Hip DHS Right Michael Stock MD Postoperative day: 4 Quality VTE Deep Vein Thrombosis/Pulmonary Embolism Present on Admission: No
[2022-03-21] MEDS: ENOXAPARIN 40 MG/0.4 ML SYRINGE SUBCUT (10:33)
[2022-03-21] MEDS: OXYCODONE IR 5 MG TABLET PO ×2 (10:34→20:57)
[2022-03-21] MEDS: polyethylene glycoL 3350 17 GM POWD.PACK PO (10:34)
[2022-03-21] MEDS: SODIUM CHLORIDE 0.9% FLUSH 10 ML IV ×2 (10:36→21:02)
--- NOTE | 2022-03-21 11:41 | PC.NURSE ---
Addendum entered by Radha Gonzalez R.N. 03/21/22 15:25: Patient is comfortable and resting, patient was happy to draw and gave the staff a nice picture with a note telling us that he appreciated what we are doing for him. He worked with physical therapy again and ambulated around the room. Original Note: Assess- Patient is alert and oriented x2, he is not able to straighten is r.leg all the way, he worked with physical therapy and stood 5times, he is not ambulating yet. Patient is needy at times but pleasant with care and makes is needs clear. [facility] wnl to r.hip and patient given one oxycodone for comfort. This has been helpful to him, patient is eating breakfast now.
[2022-03-21 12:00] VITALS: BP 113/60; PULSE 68; RESP 17; TEMP 36.9; O2SAT 97
--- NOTE | 2022-03-21 13:51 | PT.IPTN ---
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) Other specified postprocedural states (03/17/22) Surgery Performed Operation Date: 03/17/22 16:45 Actual Procedures p ORIF Hip DHS(Right) - Michael Stock MD Physical Therapy Treatment Note M2 PT-IP Current Condition Start: 03/18/22 12:21 Freq: NEEDED Status: Active Protocol: Document 03/18/22 09:30 AB (Rec: 03/18/22 12:39 AB [id number]) Physical Therapy Current Condition Current Condition Evaluation Date 03/18/22 Treatment Diagnosis s/p fall; R hip fx s/p ORIF; difficulty in walkiing Onset Date 03/17/22 M3 PT-IP Subjective Start: 03/18/22 12:21 Freq: NEEDED Status: Active Protocol: Document 03/21/22 13:52 NBM (Rec: 03/21/22 14:41 [facility] [id number]) Subjective Physical Therapy Visit Type Type Treatment Note Visit Start Time 13:32 Visit Stop Time 13:51 Total Visit Minutes 19 Number of SAUSAGE STUFFER Visits 7 Physical Therapy Visit Comments Patient Comments agreeable to do PT Therapy Pain Assessment Pain When Pain Assessed At Rest Pain Present Pain Present Pain Reported Location r hip Scale Used states a 9,annoying. does not understand scale fully. pt is dev. delayd Pain Behaviors Facial Grimacing Pain Management Techniques Distraction,Modification of Treatment,Re-positioning, Timing of Activity with Medications M4 PT-IP Mobility and Gait Start: 03/18/22 12:21 Freq: NEEDED Status: Active Protocol: Document 03/21/22 13:52 NBM (Rec: 03/21/22 14:41 [facility] [id number]) PT-Bed Mobility Assessment Supine to Sit Supine to Sit Moderate Assistance,1 Person Assistance,Head of Bed Elevated,Bedrails Sit to Supine Sit to Supine Moderate Assistance,1 Person Assistance Scooting Scooting to Edge of Bed Contact Guard Assistance Scooting Up and Down in Bed Standby Assistance PT-Transfer Assessment Sit to and From Stand Sit to and from Stand Moderate Assistance,Maximum Assistance,2 Person Assistance ,Use of Upper Extremities Equipment Transfer Assistive Device Gait Belt,Front Wheeled Walker Orthotic/Prosthetic Devices or Brace: No Transfers Transfer Destination Bed Transfer Technique Sit<>Stand Transfer Ability Level of Assist Maximum Assistance,2 Person Assistance,Use of Upper Extremities Comments Mobility Comments Pt upright in bed upon arrival and agreeable to PT. Quad sets x 3 SH w/ NMF. Mod A for scooting EOB and LE management supine to Sit EOB. Sit<>Stand w/ FWW Max A w/ 2PA, cues for foot and hand placement and upright posture. Pt achieved RLE toe touch weightbearing without NMF or cueing. Pt then ambulated ~15 ft around the bed w/ FWW, 2PA, mod A for balance, slower pacing and FWW management. Stand<>Sit EOB w/ FWW mod A, 2 PA - vc for backing up to bed before sitting and reaching back. Sit EOB to sitting upright in bed w/ Min A to Mod A for LE management and scooting. Pt left in bed w/ INSTALLATION MANAGER in room, call light and all needs within reach. Gait Assessment Gait Gait Assistance Required: Moderate Assistance,2 Person Assist Distance (Feet) 15 Able to Maintain Weight Bearing Status Yes During Gait Assistive Devices Assistive Device Gait Belt Orthotic/Prosthetic Devices or Brace: No Gait Deviations General Gait Pattern Antalgic,Decreased Stride Length,Flexed Trunk,Narrow Based Gait,Step-to Gait Factors Limiting Gait Function Factors Limiting Gait Function Decreased Activity Tolerance, Limited Range of Motion,Pain, Poor Balance,Poor Safety Awareness Comments Gait Comments See Mobility comments. PT-Balance Assessment Sitting Balance and Reactions Static Sitting Balance Ability Fair Dynamic Sitting Balance Ability Poor Standing Balance and Reactions Static Standing Balance Ability Poor Dynamic Standing Balance Ability Poor Device Used FWW M5 PT-IP Objective Assessments Start: 03/18/22 12:21 Freq: NEEDED Status: Active Protocol: Document 03/18/22 09:30 AB (Rec: 03/18/22 12:39 AB [id number]) Orientation Orientation/Cognition Level of Alertness Alert Orientation Name,Place,Situation Language Function Ability Hard of Hearing Safety Awareness Decreased Safety Awareness Memory Description Short Term Impaired Gross Range of Motion Lower Extremity ROM Assessment Right Impaired Impairments R knee increase guarding. unable to fully straighten. ~ 30 deg less to full ext Strength Lower Extremity Strength Assessment Right Impaired Hip 3-/5 Knee 3-/5 Sensation Assessment Sensation Gross Sensation WNL Muscle Tone Muscle Tone WNL Yes M6 PT-IP Treatment Start: 03/18/22 12:21 Freq: NEEDED Status: Active Protocol: Document 03/21/22 13:52 NB (Rec: 03/21/22 14:41 [facility] [id number]) Physical Therapy Treatment Exercises Exercises Quad Sets Education Education Provided Precautions,Weight Bearing Status,Safety M7 PT-IP Assessment and Plan Start: 03/18/22 12:21 Freq: NEEDED Status: Active Protocol: Document 03/21/22 13:52 NB (Rec: 03/21/22 14:41 [facility] [id number]) PT Summary Assessment and Plan Potential Rehabilitation Potential Fair Status of Condition at Evaluation Evolving Summary Impairments Pain,ROM,Strength,Balance, Coordination,Sensation,Tone, Cognition,Bed Mobility, Transfers,Gait,Activity Tolerance Assessment Summary Pt shows increased willingness to bear weight onto RLE and ambulated w/ FWW ~15 ft around bed, Mod A, 2PA, with antalgic gait. Pt continues to be challenged w/ functional mobility and is 2PA Max A w/ Sit<>Stand and gait. Pt has some difficulty following directions, needing increased cues, but very pleasant. At this time, pt will require SNF to improve functional mobility. Goals Bed Mobility Goal Standby Assistance Transfer Goal Standby Assistance,Front Wheeled Walker Gait Goal Standby Assistance,Front Wheel Walker Gait Distance 50 Other Goals up/down 2 steps without rails mod A Days to Meet Goals 10 Frequency of Treatment Frequency Of Treatment Twice a Day Treatment Plan Physical Therapy Treatment Plan Bed Mobility Training,Transfer Training,Gait Training, Therapeutic Exercise,Balance Retraining,Post Op Education, Discharge Planning,Hot or Cold Pack,Neuromuscular Re-ed, Coordination Retraining,Manual Therapy Weight Bearing Status Weight Bearing Status Weight Bear as Tolerated Allowed Weight Bearing Amount (enter % RLE WBAT or #) (%) Recommendations To Nursing Amount of Assist Needed 2 Person Assist Discharge Recommendations PT Discharge Recommendations SNF Rehab Transportation Needs at Discharge Wheelchair/Cabulance
[2022-03-21 15:57] VITALS: BP 99/50; PULSE 63; RESP 16; TEMP 36.9; O2SAT 96
[2022-03-21 20:15] VITALS: BP 113/69; PULSE 68; RESP 18; TEMP 37; O2SAT 95
[2022-03-21] MEDS: hydrOXYzine pamoate 25 MG CAPSULE 50 MG PO (20:57)
[2022-03-22 04:00] VITALS: BP 102/64; PULSE 63; RESP 16; TEMP 36.9; O2SAT 95
[2022-03-22] MEDS: ENOXAPARIN 40 MG/0.4 ML SYRINGE SUBCUT (07:59)
[2022-03-22] MEDS: polyethylene glycoL 3350 17 GM POWD.PACK PO (07:59)
[2022-03-22] MEDS: SODIUM CHLORIDE 0.9% FLUSH 10 ML IV ×2 (08:00→20:35)
[2022-03-22 08:17] VITALS: BP 141/78; PULSE 59; RESP 17; TEMP 36.9; O2SAT 99
[2022-03-22] MEDS: OXYCODONE IR 5 MG TABLET PO ×3 (09:17→20:44)
--- NOTE | 2022-03-22 09:43 | P.PN_ITS ---
Subjective Subjective Date Patient Seen: 03/22/22 Time Patient Seen: 09:44 Interval history: Sitting up in bed, continues eating and voiding without difficulty. Still requiring maximum assistance with Exam Vital Signs (past 8 hours): - 03/22/22 04:00 03/22/22 08:17 Temperature 98.4 F 98.5 F Pulse Rate 63 59 L Respiratory Rate 16 17 Blood Pressure 102/64 141/78 H Pulse Oximetry 95 99 Oxygen Flow Rate 0 0 Oxygen Delivery Method Room Air Oxygen Flow Rate 0 Narrative Exam Narrative: 5/5 strength in hip flexors, quadriceps, hamstrings, DF, PF, EHL bilaterally. Sensation to light touch intact in BLE. Calves soft, compressible, no palpable cords or masses. Aquacel dressing with minimal bloody drainage, otherwise intact. Objective Labs Result Diagrams: 03/18/22 05:36 03/17/22 13:08 [facility] Medical History Developmental delay, moderate Social History household members: family Smoking Status: Never smoker alcohol intake: current Assessment & Plan Post-op Assessment and plan (1) Status post hip surgery: Assessment and Plan narrative: WBAT to RLE.? Continue PT, SNF for extended rehab.? Enoxaparin for VTE prophylaxis through March 27.? Follow up in office between March 27 and March 31. (2) Developmental delay, moderate: (3) Acute postoperative anemia due to expected blood loss: Assessment and Plan narrative: Asymptomatic, no intervention needed. Postoperative Procedures: Procedures Operation Date: 03/17/22 16:45 Actual Procedure Side Surgeon p ORIF Hip DHS Right Michael Stock MD Postoperative day: 5 Quality VTE Deep Vein Thrombosis/Pulmonary Embolism Present on Admission: No
[2022-03-22 11:53] VITALS: BP 109/52; PULSE 71; RESP 16; TEMP 36.8; O2SAT 95
--- NOTE | 2022-03-22 13:39 | PT.IPTN ---
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) Other specified postprocedural states (03/17/22) Surgery Performed Operation Date: 03/17/22 16:45 Actual Procedures p ORIF Hip DHS(Right) - Michael Stock MD Physical Therapy Treatment Note M2 PT-IP Current Condition Start: 03/18/22 12:21 Freq: NEEDED Status: Active Protocol: Document 03/18/22 09:30 AB (Rec: 03/18/22 12:39 AB [id number]) Physical Therapy Current Condition Current Condition Evaluation Date 03/18/22 Treatment Diagnosis s/p fall; R hip fx s/p ORIF; difficulty in walkiing Onset Date 03/17/22 M3 PT-IP Subjective Start: 03/18/22 12:21 Freq: NEEDED Status: Active Protocol: Document 03/22/22 13:39 AW (Rec: 03/22/22 14:53 AW [id number]) Subjective Physical Therapy Visit Type Type Treatment Note Visit Start Time 13:03 Visit Stop Time 13:39 Total Visit Minutes 36 Number of COMBAT CONTROL MANAGER Visits 0 Physical Therapy Visit Comments Patient Comments agreeable to do PT Therapy Pain Assessment Pain When Pain Assessed During Mobility Pain Present Pain Present Pain Reported Location r hip Intensity 6 Scale Used Romano-Vargas (Faces) Pain Behaviors Facial Grimacing Pain Management Techniques Distraction,Modification of Treatment,Re-positioning M4 PT-IP Mobility and Gait Start: 03/18/22 12:21 Freq: NEEDED Status: Active Protocol: Document 03/22/22 13:39 AW (Rec: 03/22/22 14:53 AW [id number]) PT-Bed Mobility Assessment Supine to Sit Supine to Sit Moderate Assistance,1 Person Assistance,Head of Bed Elevated,Bedrails Scooting Scooting to Edge of Bed Contact Guard Assistance PT-Transfer Assessment Sit to and From Stand Sit to and from Stand Maximum Assistance,1 Person Assistance,Use of Upper Extremities Equipment Transfer Assistive Device Gait Belt,Front Wheeled Walker Orthotic/Prosthetic Devices or Brace: No Transfers Transfer Destination Chair,Bedside Commode Transfer Technique Stand Step Pivot Transfer Ability Level of Assist Maximum Assistance,1 Person Assistance,Use of Upper Extremities Comments Mobility Comments Pt was lying in bed as PT arrived. He stated he needed to have a bowel movement. He needed mod A to sit up EOB, max A to stand and max A with FWW to [place] [facility] [place] his left side. During this transfer, he largely pivoted on his left foot. He was able to have a bowel movement. Nursing arrived to assess skin and assist with pericare as pt stood max A x 1 using FWW as support. Pt indicated he needed to sit again for continued bowel movement. When finished, he stood again max A as nursing provided pericare . He used FWW to ambulate 15 feet to the chair set up on opposite side of the bed. Pt was left with call light and tray table in reach. Pt stated he wanted to shave. PT alerted RN for ADL assist. Gait Assessment Gait Gait Assistance Required: Maximum Assistance,1 Person Assist Distance (Feet) 15 Able to Maintain Weight Bearing Status Yes During Gait Assistive Devices Assistive Device Gait Belt,Front Wheeled Walker Orthotic/Prosthetic Devices or Brace: No Gait Deviations General Gait Pattern Antalgic,Decreased Stride Length,Flexed Trunk,Narrow Based Gait,Step-to Gait Factors Limiting Gait Function Factors Limiting Gait Function Abnormal Tonal Influences, Decreased Activity Tolerance, Limited Range of Motion,Pain, Poor Balance,Poor Safety Awareness Comments Gait Comments Pt has knee flexion contracture and adductor tone bilaterally as well as Charcot feet which likely complicate his gait at baseline. Further complicated now by RLE pain and difficulty with weightbearing activity. PT-Balance Assessment Sitting Balance and Reactions Static Sitting Balance Ability Fair Dynamic Sitting Balance Ability Fair Standing Balance and Reactions Static Standing Balance Ability Poor Dynamic Standing Balance Ability Poor Device Used FWW M5 PT-IP Objective Assessments Start: 03/18/22 12:21 Freq: NEEDED Status: Active Protocol: Document 03/18/22 09:30 AB (Rec: 03/18/22 12:39 AB [id number]) Orientation Orientation/Cognition Level of Alertness Alert Orientation Name,Place,Situation Language Function Ability Hard of Hearing Safety Awareness Decreased Safety Awareness Memory Description Short Term Impaired Gross Range of Motion Lower Extremity ROM Assessment Right Impaired Impairments R knee increase guarding. unable to fully straighten. ~ 30 deg less to full ext Strength Lower Extremity Strength Assessment Right Impaired Hip 3-/5 Knee 3-/5 Sensation Assessment Sensation Gross Sensation WNL Muscle Tone Muscle Tone WNL Yes M6 PT-IP Treatment Start: 03/18/22 12:21 Freq: NEEDED Status: Active Protocol: Document 03/22/22 13:39 AW (Rec: 03/22/22 14:53 AW [id number]) Physical Therapy Treatment Exercises Exercises Quad Sets Education Education Provided Weight Bearing Status,Safety M7 PT-IP Assessment and Plan Start: 03/18/22 12:21 Freq: NEEDED Status: Active Protocol: Document 03/22/22 13:39 AW (Rec: 03/22/22 14:53 AW [id number]) PT Summary Assessment and Plan Summary Progress Towards Goals Slow Progress due to Pain,Slow Progress - Other Assessment Summary Pt improved from 2-person assist (mod) to 1-person max assist for transfers and gait with FWW today. Underlying knee flexion contractures and adductor tone likely complicate gait at baseline which is now further complicated by traumatic fracture and pain with some element of fear avoidance. Pt will require SNF rehab to improve strength and mobility independence. Goals Bed Mobility Goal Standby Assistance Transfer Goal Standby Assistance,Front Wheeled Walker Gait Goal Standby Assistance,Front Wheel Walker Gait Distance 50 Other Goals up/down 2 steps without rails mod A Days to Meet Goals 10 Frequency of Treatment Frequency Of Treatment Twice a Day Treatment Plan Physical Therapy Treatment Plan Bed Mobility Training,Transfer Training,Gait Training, Therapeutic Exercise,Balance Retraining,Post Op Education, Discharge Planning,Hot or Cold Pack,Neuromuscular Re-ed, Coordination Retraining,Manual Therapy Weight Bearing Status Weight Bearing Status Weight Bear as Tolerated Allowed Weight Bearing Amount (enter % RLE WBAT or #) (%) Recommendations To Nursing Amount of Assist Needed 1 Person Assist Discharge Recommendations PT Discharge Recommendations SNF Rehab Transportation Needs at Discharge Wheelchair/Cabulance
--- NOTE | 2022-03-22 14:11 | CM.DPC ---
DCP Cont: Left a message with [facility] to ensure that [employer] auth was initiated. According to Katelyn in admissions yesterday, this was supposed to have been started. As back up called [facility] , for Regine did not return this DC Edging Machine Catcher's call from yesterday. Mariola is in admissions this weekend. She was not familiar with referral, and also indicated that they do not do admissions on week-ends at this time. P: Have a message out to [facility] admissions, will need to contact them again in the morning regarding auth, for patient is ready for discharge. Fatuma Bain, JOCELIN/Salesman/Owner
[2022-03-22 16:00] VITALS: BP 95/62; PULSE 70; RESP 16; TEMP 37.2; O2SAT 97
[2022-03-22] MEDS: hydrOXYzine pamoate 25 MG CAPSULE PO (16:09)
[2022-03-22 19:38] VITALS: BP 105/54; PULSE 69; RESP 16; TEMP 37; O2SAT 96
[2022-03-22] MEDS: OXYCODONE IR 10 MG TABLET PO (22:56)
[2022-03-23] MEDS: OXYCODONE IR 5 MG TABLET PO ×3 (03:36→16:13)
[2022-03-23 03:47] VITALS: BP 97/52; PULSE 69; RESP 16; TEMP 36.8; O2SAT 93
[2022-03-23] MEDS: hydrOXYzine pamoate 25 MG CAPSULE PO ×3 (04:17→16:13)
[2022-03-23 07:30] VITALS: BP 149/57; PULSE 73; RESP 18; TEMP 36.9; O2SAT 97
[2022-03-23] MEDS: ENOXAPARIN 40 MG/0.4 ML SYRINGE SUBCUT (08:08)
[2022-03-23] MEDS: SODIUM CHLORIDE 0.9% FLUSH 10 ML IV ×2 (08:08→22:15)
--- NOTE | 2022-03-23 08:41 | CM.DPC ---
Addendum entered by Jenise Alamo R.N. 03/23/22 15:52: DCP confirmed with [facility], and they are able to accept this patient tomorrow @ 1030. Transport is set up via [facility] van. COVID swab order placed and will need prior to transport. PASRR has been faxed to [facility]. Will need to fax d/c summary, orders, med list, and covid swab. Pt in agreement with this plan. ADJ, RN/JOIP Original Note: DCP Cont: Spoke with [facility] this morning, and unfortunately, they are unable to accept this pt as they cannot meet his needs. DCP then spoke with Regine at [facility] and they are still willing to accept the patient. I have asked them to re-auth this patient. [facility] states that most likely they would be able to accept pt tomorrow. Pt is medically stable for discharge. DCP to continue to follow and follow up with the family. Jenise Alamo RN/JOIP
--- NOTE | 2022-03-23 10:05 | PT.IPTN ---
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) Other specified postprocedural states (03/17/22) Surgery Performed Operation Date: 03/17/22 16:45 Actual Procedures p ORIF Hip DHS(Right) - Michael Stock MD Physical Therapy Treatment Note M2 PT-IP Current Condition Start: 03/18/22 12:21 Freq: NEEDED Status: Active Protocol: Document 03/23/22 09:40 SP (Rec: 03/23/22 14:27 SP [id number]) Physical Therapy Current Condition Current Condition Evaluation Date 03/18/22 Treatment Diagnosis s/p fall; R hip fx s/p ORIF; difficulty in walkiing Onset Date 03/17/22 M3 PT-IP Subjective Start: 03/18/22 12:21 Freq: NEEDED Status: Active Protocol: Document 03/23/22 09:40 SP (Rec: 03/23/22 14:27 SP [id number]) Subjective Physical Therapy Visit Type Type Treatment Note Visit Start Time 09:40 Visit Stop Time 10:05 Total Visit Minutes 25 Notes Vitals taken during tx: supine: BP 108/61 HR 67 post mobility: 114/70 HR 71 Number of SCREENER AND BLENDER Visits 1 Physical Therapy Visit Comments Patient Comments Pt is agreeable to working with PT Therapy Pain Assessment Pain When Pain Assessed During Mobility Pain Present Pain Present Pain Reported Location r hip Intensity 7 Scale Used 7-8/10 with mobility Description With Movement Pain Behaviors Facial Grimacing,Wincing Pain Management Techniques Distraction,Modification of Treatment,Re-positioning, Timing of Activity with Medications M4 PT-IP Mobility and Gait Start: 03/18/22 12:21 Freq: NEEDED Status: Active Protocol: Document 03/23/22 09:40 SP (Rec: 03/23/22 14:27 SP [id number]) PT-Bed Mobility Assessment Supine to Sit Supine to Sit Minimal Assistance,1 Person Assistance,Head of Bed Elevated,Bedrails Scooting Scooting to Edge of Bed Contact Guard Assistance PT-Transfer Assessment Sit to and From Stand Sit to and from Stand Maximum Assistance,1 Person Assistance,Use of Upper Extremities Equipment Transfer Assistive Device Gait Belt,Front Wheeled Walker Orthotic/Prosthetic Devices or Brace: No Transfers Transfer Destination Chair Transfer Technique Stand Step Pivot Transfer Ability Level of Assist Moderate Assistance,Maximum Assistance,1 Person Assistance ,Use of Upper Extremities Comments Mobility Comments AAROM R ankle: DF/PF limited ROM and strength, Quad sets x 3 SH w/ NMF,glut sets, heel slides AROM approx 35-70 deg RLE. Elevated supine>sit Min A trunk righting, scoot using bed rail on L BUE and LLE WB on bed. Sit>stand Max A x1 R foot PF with toe extension difficulty R knee extension to WB initially. Cued wt shifting into RLE as arleth, SPT w/FWW bed>chair demonstrated NWB and able graded hop on LLE heavy WB BUE on FWW Max inititally> Mod A x1, cued quad fac to maintain safe standing and support FWW repositioning. Mod A descend sit in chair. Instructed RLE LAQ, Min A to tolerant ROM approx 35 deg extension seated in chair. Sit>stand Max A x1 w/ FWW forward gait to sink then pivot and return Mod A x1 , support for FWW as needed. Pt was in chair with call light and all needs in reach. Pt had call light and all needs in reach before left, chair alarm donned for safety due to decrease cognitive, mod cues for sequencing and 0/3 recall for precautions, education for precautions and referred to HOs provided for safety during mobility. Gait Assessment Gait Gait Assistance Required: Moderate Assistance,Maximum Assistance,1 Person Assist Distance (Feet) 15 Able to Maintain Weight Bearing Status Yes During Gait Assistive Devices Assistive Device Gait Belt,Front Wheeled Walker Orthotic/Prosthetic Devices or Brace: No Gait Deviations General Gait Pattern Antalgic,Decreased Stride Length,Flexed Trunk,Narrow Based Gait,Step-to Gait Factors Limiting Gait Function Factors Limiting Gait Function Abnormal Tonal Influences, Decreased Activity Tolerance, Decreased Strength,Difficulty Following Directions,Limited Range of Motion,Pain,Poor Balance,Poor Safety Awareness Comments Gait Comments Pt has R knee flexion contracture and adductor tone R>L LE bilaterally as well as Charcot feet which likely complicate his gait at baseline. Further complicated now by RLE pain and difficulty with weightbearing activity. Stair Climbing Assessment Comments Stair Climbing Comments unable to assess, will need to complete 2 steps with no HR for safe DC when safe/ able to return home. PT-Balance Assessment Sitting Balance and Reactions Static Sitting Balance Ability Fair Dynamic Sitting Balance Ability Fair Standing Balance and Reactions Static Standing Balance Ability Poor Dynamic Standing Balance Ability Poor Device Used FWW M5 PT-IP Objective Assessments Start: 03/18/22 12:21 Freq: NEEDED Status: Active Protocol: Document 03/18/22 09:30 AB (Rec: 03/18/22 12:39 AB [id number]) Orientation Orientation/Cognition Level of Alertness Alert Orientation Name,Place,Situation Language Function Ability Hard of Hearing Safety Awareness Decreased Safety Awareness Memory Description Short Term Impaired Gross Range of Motion Lower Extremity ROM Assessment Right Impaired Impairments R knee increase guarding. unable to fully straighten. ~ 30 deg less to full ext Strength Lower Extremity Strength Assessment Right Impaired Hip 3-/5 Knee 3-/5 Sensation Assessment Sensation Gross Sensation WNL Muscle Tone Muscle Tone WNL Yes M6 PT-IP Treatment Start: 03/18/22 12:21 Freq: NEEDED Status: Active Protocol: Document 03/23/22 09:40 SP (Rec: 03/23/22 14:27 SP [id number]) Physical Therapy Treatment Exercises Exercises Ankle Pumps,Gluteal Sets,Quad Sets,Heel Slides,Seated Knee Flexion/Extension Knee ROM Measurement 35-70 R knee Education Education Provided Weight Bearing Status,Safety M7 PT-IP Assessment and Plan Start: 03/18/22 12:21 Freq: NEEDED Status: Active Protocol: Document 03/23/22 09:40 SP (Rec: 03/23/22 14:27 SP [id number]) PT Summary Assessment and Plan Potential Rehabilitation Potential Fair Status of Condition at Evaluation Evolving Summary Impairments Pain,ROM,Strength,Balance, Coordination,Sensation,Tone, Cognition,Bed Mobility, Transfers,Gait,Activity Tolerance Progress Towards Goals Slow Progress due to Pain,Slow Progress due to Activity Tolerance,Slow Progress - Other Assessment Summary Pt improved Min A with bed mobility, mod-max A x1 w/ FWW transfer and gait. Underlying knee flexion contractures and adductor tone likely complicate gait at baseline which is now further complicated by traumatic fracture and pain with some element of fear avoidance. Pt will require SNF rehab to improve strength and mobility independence. Goals Bed Mobility Goal Standby Assistance Transfer Goal Standby Assistance,Front Wheeled Walker Gait Goal Standby Assistance,Front Wheel Walker Gait Distance 50 Other Goals up/down 2 steps without rails mod A Days to Meet Goals 10 Frequency of Treatment Frequency Of Treatment Twice a Day Treatment Plan Physical Therapy Treatment Plan Bed Mobility Training,Transfer Training,Gait Training, Therapeutic Exercise,Balance Retraining,Post Op Education, Discharge Planning,Hot or Cold Pack,Neuromuscular Re-ed, Coordination Retraining,Manual Therapy Other Recommendations and Next Treatment review precautions, LE ex, bed Focus mob, transfers, gait if tolerated using FWW. Weight Bearing Status Weight Bearing Status Weight Bear as Tolerated Allowed Weight Bearing Amount (enter % RLE WBAT or #) (%) Recommendations To Nursing Amount of Assist Needed 1 Person Assist Discharge Recommendations PT Discharge Recommendations SNF Rehab Transportation Needs at Discharge Wheelchair/Cabulance
[2022-03-23 11:01] VITALS: BP 113/68; PULSE 64; RESP 16; TEMP 36.9; O2SAT 97
--- NOTE | 2022-03-23 11:23 | DIET.CONS2 ---
Dietary Inpatient Consultation Note Admission Date: 03/17/2022 13:33 RD screened patient for LOS day 6 after hip fracture repair with Dr. Stock. Pt awaiting placement, likely d/c tomorrow. Pt with 100% POs, no further nutrition needs identified. Diet: 03/17/22 Breakfast General (Regular) Diet Diet Modifications: Nutrition Percent Meal Consumed 100% 03/23/22 09:07 Percent Meal Consumed 100% 03/22/22 13:04 Percent Meal Consumed 100% 03/22/22 08:57 Percent Meal Consumed 100% 03/21/22 18:44 Percent Meal Consumed 100% 03/21/22 12:51 Electronically Signed by: Allison Thomason 03/23/22 11:23 Clinical Dietitian [address] [address]
--- NOTE | 2022-03-23 12:29 | P.PN_ITS ---
Subjective Subjective Date Patient Seen: 03/23/22 Time Patient Seen: 12:29 Interval history: Sitting in chair, eating lunch. Has progressed w/ PT to only one-person assist. Voiding without difficulty, moved bowels this morning. Exam Vital Signs (past 8 hours): - 03/23/22 07:30 03/23/22 11:01 Temperature 98.4 F 98.5 F Pulse Rate 73 64 Respiratory Rate 18 16 Blood Pressure 149/57 H 113/68 Pulse Oximetry 97 97 Oxygen Flow Rate 0 0 Oxygen Delivery Method Room Air Oxygen Flow Rate 0 Narrative Exam Narrative: 5/5 strength in hip flexors, quadriceps, hamstrings, DF, PF, EHL bilaterally. Sensation to light touch intact in BLE. Calves soft, compressible, nontender and without palpable cords or masses. Objective Labs Result Diagrams: 03/18/22 05:36 03/17/22 13:08 [facility] Medical History Developmental delay, moderate Social History household members: family Smoking Status: Never smoker alcohol intake: current Assessment & Plan Post-op Assessment and plan (1) Status post hip surgery: Assessment and Plan narrative: WBAT to RLE.? Continue PT, SNF for extended rehab.? Enoxaparin for VTE prophylaxis through March 27.? Follow up in office between March 27 and March 31. (2) Developmental delay, moderate: (3) Acute postoperative anemia due to expected blood loss: Assessment and Plan narrative: Asymptomatic, no intervention needed. Postoperative Procedures: Procedures Operation Date: 03/17/22 16:45 Actual Procedure Side Surgeon p ORIF Hip DHS Right Michael Stock MD Postoperative day: 6 Quality VTE Deep Vein Thrombosis/Pulmonary Embolism Present on Admission: No
--- NOTE | 2022-03-23 14:41 | PT.IPTN ---
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) Other specified postprocedural states (03/17/22) Surgery Performed Operation Date: 03/17/22 16:45 Actual Procedures p ORIF Hip DHS(Right) - Michael Stock MD Physical Therapy Treatment Note M2 PT-IP Current Condition Start: 03/18/22 12:21 Freq: NEEDED Status: Active Protocol: Document 03/23/22 13:58 SP (Rec: 03/23/22 15:21 SP [id number]) Physical Therapy Current Condition Current Condition Evaluation Date 03/18/22 Treatment Diagnosis s/p fall; R hip fx s/p ORIF; difficulty in walkiing Onset Date 03/17/22 M3 PT-IP Subjective Start: 03/18/22 12:21 Freq: NEEDED Status: Active Protocol: Document 03/23/22 13:58 SP (Rec: 03/23/22 15:21 SP [id number]) Subjective Physical Therapy Visit Type Type Treatment Note Visit Start Time 14:10 Visit Stop Time 14:41 Total Visit Minutes 31 Number of SHAKE FEEDER Visits 2 Physical Therapy Visit Comments Patient Comments Pt is agreeable to working with PT Therapy Pain Assessment Pain When Pain Assessed During Mobility Pain Present Pain Present Denied Pain Location r hip Intensity 6 Scale Used 6/10 with mobility Description With Movement Pain Behaviors Facial Grimacing,Wincing Pain Management Techniques Distraction,Modification of Treatment,Re-positioning, Timing of Activity with Medications M4 PT-IP Mobility and Gait Start: 03/18/22 12:21 Freq: NEEDED Status: Active Protocol: Document 03/23/22 13:58 SP (Rec: 03/23/22 15:21 SP [id number]) PT-Bed Mobility Assessment Supine to Sit Supine to Sit Minimal Assistance,1 Person Assistance,Head of Bed Elevated,Bedrails Scooting Scooting to Edge of Bed Contact Guard Assistance PT-Transfer Assessment Sit to and From Stand Sit to and from Stand Moderate Assistance,1 Person Assistance,Use of Upper Extremities Equipment Transfer Assistive Device Gait Belt,Front Wheeled Walker Orthotic/Prosthetic Devices or Brace: No Transfers Transfer Destination Bed Transfer Technique pt ambulated using FWW Transfer Ability Level of Assist Moderate Assistance,1 Person Assistance,Use of Upper Extremities Comments Mobility Comments Elevated (14 deg) supine>sit Min A support complete trunk righting to L and scoot CGA to EOB heavy BUE. Seated unsuported UE support. AAROM R ankle, limited DF and supination. Instructed LAQ BUE supported R thigh, limited extension. Will measure next tx. Sit>stand Mod A x1, forward step to patterning w/ FWW Mod A x1 bed<>bench and back x2 laps approx 20 ft, pt difficulty achieving RLE WB with hip and knee flexion contracture, tends to bend L knee heavily BUE WB to allow RLE hip flexion and contact floor uncertain how much able to WB into RLE. Pt returned to EOB Min A to grad stand>sit, Mod A for BLE lift onto bed, able to center self via bridge technique WB BLE and BUE. SHAKE FEEDER placed waffle cushion under bed pad for skin protection with reports bottom bothering him, changed bed pad due to smear bleed noted when got up. Pt had call light and all needs in reach with bed alarmed. Pt requested to notify nursing assist hard time urinating and assist with phone to speak with family. Nursing stated no DC today, probably tomorrow. Will continue to assess progress. Gait Assessment Gait Gait Assistance Required: Moderate Assistance,1 Person Assist Distance (Feet) 20 Able to Maintain Weight Bearing Status Yes During Gait Assistive Devices Assistive Device Gait Belt,Front Wheeled Walker Orthotic/Prosthetic Devices or Brace: No Gait Deviations General Gait Pattern Antalgic,Decreased Stride Length,Flexed Trunk,Narrow Based Gait,Step-to Gait Factors Limiting Gait Function Factors Limiting Gait Function Abnormal Tonal Influences, Decreased Activity Tolerance, Decreased Strength,Difficulty Following Directions,Limited Range of Motion,Pain,Poor Balance,Poor Safety Awareness Comments Gait Comments Pt has R knee flexion contracture and adductor tone R>L LE bilaterally as well as Charcot feet which likely complicate his gait at baseline. Further complicated now by RLE pain and difficulty with weightbearing activity. See mobility comments. Stair Climbing Assessment Comments Stair Climbing Comments unable to assess, will need to complete 2 steps with no HR for safe DC when safe/ able to return home. PT-Balance Assessment Sitting Balance and Reactions Static Sitting Balance Ability Fair Dynamic Sitting Balance Ability Fair Standing Balance and Reactions Static Standing Balance Ability Poor Dynamic Standing Balance Ability Poor Device Used FWW M5 PT-IP Objective Assessments Start: 03/18/22 12:21 Freq: NEEDED Status: Active Protocol: Document 03/18/22 09:30 AB (Rec: 03/18/22 12:39 AB [id number]) Orientation Orientation/Cognition Level of Alertness Alert Orientation Name,Place,Situation Language Function Ability Hard of Hearing Safety Awareness Decreased Safety Awareness Memory Description Short Term Impaired Gross Range of Motion Lower Extremity ROM Assessment Right Impaired Impairments R knee increase guarding. unable to fully straighten. ~ 30 deg less to full ext Strength Lower Extremity Strength Assessment Right Impaired Hip 3-/5 Knee 3-/5 Sensation Assessment Sensation Gross Sensation WNL Muscle Tone Muscle Tone WNL Yes M6 PT-IP Treatment Start: 03/18/22 12:21 Freq: NEEDED Status: Active Protocol: Document 03/23/22 13:58 SP (Rec: 03/23/22 15:21 SP [id number]) Physical Therapy Treatment Exercises Exercises Seated Knee Flexion/Extension Education Education Provided Weight Bearing Status,Safety Other Treatments Other Treatment Performed AAROM R ankle seated at EOB, see mobility comments. M7 PT-IP Assessment and Plan Start: 03/18/22 12:21 Freq: NEEDED Status: Active Protocol: Document 03/23/22 13:58 SP (Rec: 03/23/22 15:21 SP [id number]) PT Summary Assessment and Plan Potential Rehabilitation Potential Fair Status of Condition at Evaluation Evolving Summary Impairments Pain,ROM,Strength,Balance, Coordination,Sensation,Tone, Cognition,Bed Mobility, Transfers,Gait,Activity Tolerance Progress Towards Goals Slow Progress due to Pain,Slow Progress due to Activity Tolerance,Slow Progress - Other Assessment Summary Pt improved Min A with bed mobility, mod A x1 w/ FWW transfer and gait. Underlying knee flexion contractures and adductor tone likely complicate gait at baseline which is now further complicated by traumatic fracture and pain with some element of fear avoidance. Pt will require SNF rehab to improve strength and mobility independence. Goals Bed Mobility Goal Standby Assistance Transfer Goal Standby Assistance,Front Wheeled Walker Gait Goal Standby Assistance,Front Wheel Walker Gait Distance 50 Other Goals up/down 2 steps without rails mod A Days to Meet Goals 10 Frequency of Treatment Frequency Of Treatment Twice a Day Treatment Plan Physical Therapy Treatment Plan Bed Mobility Training,Transfer Training,Gait Training, Therapeutic Exercise,Balance Retraining,Post Op Education, Discharge Planning,Hot or Cold Pack,Neuromuscular Re-ed, Coordination Retraining,Manual Therapy Other Recommendations and Next Treatment review precautions, LE ex, bed Focus mob, transfers, gait if tolerated using FWW. Precautions Posterior Hip Precautions No Hip Flexion > 90 degrees,No Hip Internal Rotation,No Hip Adduction Other Precautions 0/3 recall precautions Weight Bearing Status Weight Bearing Status Weight Bear as Tolerated Allowed Weight Bearing Amount (enter % RLE WBAT or #) (%) Recommendations To Nursing Amount of Assist Needed 1 Person Assist Discharge Recommendations PT Discharge Recommendations SNF Rehab Transportation Needs at Discharge Wheelchair/Cabulance
[2022-03-23 16:17] VITALS: BP 118/61; PULSE 71; RESP 18; TEMP 36.8; O2SAT 100
[2022-03-23] MEDS: polyethylene glycoL 3350 17 GM POWD.PACK PO (16:22)
[2022-03-23 17:33] LABS: COVID19 -Nasal RAPID Negative (Negative)
[2022-03-23 20:10] VITALS: PULSE 82; RESP 16
[2022-03-23 20:30] VITALS: BP 120/65; PULSE 83; RESP 18; TEMP 37; O2SAT 96
[2022-03-23] MEDS: OXYCODONE IR 10 MG TABLET PO (22:50)
[2022-03-24] VITALS: BP 120/70; PULSE 75; RESP 18; TEMP 36.7; O2SAT 96
[2022-03-24 04:00] VITALS: BP 97/54; PULSE 65; RESP 17; TEMP 36.7; O2SAT 95
[2022-03-24 08:00] VITALS: BP 106/53; PULSE 70; RESP 16; TEMP 36.8; O2SAT 97
[2022-03-24] MEDS: ENOXAPARIN 40 MG/0.4 ML SYRINGE SUBCUT (08:55)
[2022-03-24] MEDS: OXYCODONE IR 10 MG TABLET PO (08:56)
--- NOTE | 2022-03-24 10:26 | CM.DPC ---
DCP Cont: Pt is discharging today to [facility] via cabulance. Pt and sister in law in agreement with plan. Sister in law to meet with pt at [facility]. Sister to provide [facility] with updated covid card. DCP has faxed orders, med sheet, rx's, and summary this morning. PASRR provided to [facility]. Jenise Alamo RN/KELVIN
--- NOTE | 2022-03-24 11:15 | PT-IP ANOTE ---
Attempted to see pt at 11:15, pt already d/c.
--- NOTE | 2022-03-24 12:59 | PC.NURSE ---
Transfer: Pt Transfered to [facility]. Report given to Cait, admitting nurse. Reviewed hospital course and adl's, pt is mentally delayed and tends to repeat questions and gets anxious quickly. Needs reasurance. Questions answered.
--- NOTE | 2022-03-24 14:39 | P.DS_ITS ---
History of Present Illness History of Present Illness Date Patient Seen: 03/23/22 Time Patient Seen: 12:30 Chief complaint: R hip pain Narrative: Operative Date/Time/Diagnoses Date of procedure: 03/17/22 Pre-op diagnosis: Right hip intertrochanteric fracture, displaced, closed Post-op diagnosis: same Procedure & Clinicians Procedure: Open reduction internal fixation of right hip fracture with dynamic hip screw construct Same procedure as scheduled: Yes Indications: The patient is a 61-year-old mildly developmentally delayed gentleman who suffered a fall 2 days ago and was unable to walk.? He eventually was taken [facility] emergency room by his family for evaluation and radiographs revealed a displaced intertrochanteric hip fracture.? He has been admitted for open reduction internal fixation and has agreed to this after discussion the risks benefits and alternatives as documented in my history and physical note. Surgeon: Michael Stock Click Yes if Unassisted: Yes Anesthesia Type: General and Local Operative Notes Findings: Anatomic reduction. Closure Type: primary Specimen(s): none sent Prosthetic devices, grafts, tissues, transplants, or devices: Implants used in this procedure manufactured by the [employer] and included a dynamic hip screw with a 105 mm lag screw and a 135 degree long barrel 4 hole side plate and 4 cortical screws. Applied: implant(s) Estimated Blood Loss (mL): 150 Blood products transfused: none Discharge Providers Provider Date of admission: 03/17/22 13:33 Discharge Date: 03/24/22 Consults: 03/17/22 20:33 Consult to Discharge Planning Routine Comment: Consult to Physical Therapy Evaluate & Treat Comment: Physician Instructions: Evaluate and Treat 03/17/22 21:29 Consult to Respiratory Therapy Evaluate & Treat Comment: pt sounds wet post op Physician Instructions: Evaluate and treat Discharge provider: Karis Doherty PA-C Summary Hospital Course Discharge Diagnosis: s/p fixation of right hip fracture Hospital Course: Mr Serrano's hospital course was remarkable for slow progress w/ PT due both to pain and congenital physical developmental delays. On POD# 7 he was eating and voiding without difficulty or assistance, and PT felt he was appropriate for discharge to SNF. Status at Discharge Cognitive/behavioral status at discharge: at baseline, oriented Exam Vital Signs (past 8 hours): - 03/24/22 08:00 03/24/22 07:30 Temperature 98.2 F Pulse Rate 70 Respiratory Rate 16 Blood Pressure 106/53 L Pulse Oximetry 97 Oxygen Delivery Method Room Air Oxygen Delivery Method Room Air Oxygen Flow Rate 0 Narrative Exam Narrative: Please see 03/23 progress note for details. Objective Labs Result Diagrams: 03/18/22 05:36 03/17/22 13:08 Labs: Laboratory Results - last 24 hr 03/23/22 15:00 SARS-CoV-2 (PCR) Negative [facility] Medical History Developmental delay, moderate Social History household members: family Smoking Status: Never smoker alcohol intake: current Discharge Assessment & Plan Assessment and Plan Assessment: POD# 7 s/p fixation of right hip fracture. Plan of Treatment: Continue enoxaparin through March 27, 2022 for VTE prophylaxis. WBAT to RLE. D/c to SNF. F/u in office between 03/27 and 03/31. Discharge Plan Discharge Plan Patient Disposition: SNF Transfer to: [facility] Discharge orders & Medications Prescriptions: New enoxaparin [Lovenox] 40 mg/0.4 mL Syringe 40 mg SUBCUT DAILY 7 Days Qty: 2.8 0RF hydroxyzine pamoate 25 mg Capsule 25 mg PO Q4-6H PRN (Reason: Spasms) Qty: 120 0RF oxycodone 5 mg Tablet 5 mg PO Q4-6H Qty: 60 0RF Rx Instructions: Give 1-2 tabs q 4-6hrs Follow up/Referrals: Michael Stock MD [Physician] - 2 Weeks (Follow up w/ PA @ [facility] between March 27-.) Diet/Activity/Treatments Diet: Diet as Tolerated Activity: Weight bearing as tolerated to right leg. Cold/Heat Therapy: Ice as needed to hip for pain. Other treatments: Enoxaparin for VTE prophylaxis through March 27, 2022. Skin/Wound/Dressing Care Report to your healthcare provider any signs of infection, such as:: chills, fever, night sweats, unusual drainage and unusual redness Dressing: May shower. Leave Aquacel dressing in place until follow up in office. No bathing or otherwise soaking incision. Special Rehabilitation Services Reason for rehabilitation: Post-operative therapy Rehab type: Physical therapy and Occupational therapy Restrictions to mobility: WBAT to right leg. Visit Report/Discharge Packet Instructions: DI for Constipation, How to Prevent Falls, DI for Open Reduction Internal Fixation Surgery, DI for Prescription Opioid Use Stand Alone Forms: Surgery Discharge Quality VTE Deep Vein Thrombosis/Pulmonary Embolism Present on Admission: No
== END 2022-03-24 10:30 | DRG 482 ==
LOC: ED 13:13 → AC 13:34
PROVIDERS: Admitting Provider Orthopaedic Surgery; Emergency Provider Emergency Medicine; Referring Provider Emergency Medicine; Visit Provider Orthopaedic Surgery
PROC: 0QS604Z Reposition Right Upper Femur with Internal Fixation Device, Open Approach (ICD-10-PCS; principal; 2022-03-17 16:45)
DX: S72.141A Displaced intertrochanteric fracture of right femur, initial encounter for closed fracture (principal); R62.50 Unspecified lack of expected normal physiological development in childhood; G89.18 Other acute postprocedural pain; Z20.822 Contact with and (suspected) exposure to COVID-19; W10.9XXA Fall (on) (from) unspecified stairs and steps, initial encounter
CPT/HCPCS: 36415; 71045; 73502; 76000; 80053; 81003; 81015; 85025; 85027; 87635; 96374; 97110; 97116; 97162; 97530; 99284; C9803; J0171; J0690; J1100; J1170; J1650; J2175; J2405; J2704; J3010